=== PATIENT | male | born 1950 | race Caucasian/White ===

== ENCOUNTER 2018-03-23 12:20 | Inpatient (IN) ==
[2018-03-23] MEDS ORDERED: SODIUM CHLORIDE 0.9% 1,000 ML IV PRN (13:13)
[2018-03-23] MEDS ORDERED: DEXTROSE 50% 25 GM/50 ML VIAL IV PRN (13:14)
[2018-03-23] MEDS ORDERED: GLUCAGON 1 MG VIAL IM PRN (13:14)
[2018-03-23 14:57] LABS: % Iron Saturation 38.3 % (18-50); Ferritin 482.1 ng/ml (26-388)
[2018-03-23 15:18] LABS: Folate 4.7 NG/ML (5.4-24.0)
[2018-03-23 15:42] LABS: Hepatitis A Ab IgM Quant 0.17 Index; Hepatitis A Ab IgM Result Negative (Negative); Hepatitis B Core IgM Quant 0.18 Index; Hepatitis B Core IgM Result Negative (Negative); Hepatitis B Surface Ag Quant < 0.10 Index; Hepatitis B Surface Ag Result Negative (Negative); Hepatitis C Virus Ab Quant 0.17 Index; Hepatitis C Virus Ab Result Negative (Negative)
[2018-03-24] MEDS ORDERED: ceFAZolin 1,000 MG in SYRINGE 1 EACH IV ONE (06:00)
[2018-03-24 07:22] LABS: Total Protein (Chem) 6.4 G/DL (6.4-8.3)
[2018-03-24 07:27] LABS: Basophils # 0.1 10*3/uL (0.0-0.2); Basophils % 0.7 % (0.0-0.8); Eosinophils # 0.2 10*3/uL (0.0-0.87); Eosinophils % 3.1 % (0.00-10.9); Hematocrit 19.8 VOL% (42.0-52.0); Hemoglobin 6.6 GM/DL (14.0-18.0); Immature Granulocytes % 0.9 %; Immature Granulocytes Absolute 0.07 #; Lymphocytes # 0.9 10*3/uL (1.4-4.0); Lymphocytes % 11.4 % (21.2-54.2); Mean Corpuscular HGB Conc 33.3 GM/DL (32-36); Mean Corpuscular Hemoglobin 30 PG (27-34); Mean Corpuscular Volume 89.6 FL (87-102); Mean Platelet Volume 11.2 FL (9.6-12.0); Monocytes # 0.6 10*3/uL (0.11-0.8); Monocytes % 7.6 % (1.7-12.7); Neutrophils # 5.7 10*3/uL (1.4-7.4); Neutrophils % 76.3 % (38.7-73.9); Platelet Count 201 T/CUMM (130-400); Red Blood Count 2.21 MC/CUMM (3.8-5.5); Red Cell Distribution Width 18.5 % (9.3-17.3); White Blood Count 7.5 T/CUMM (4-12)
[2018-03-24] MEDS ORDERED: GLUCAGON 1 MG VIAL IM PRN (07:54)
[2018-03-24] MEDS ORDERED: DEXTROSE 50% 25 GM/50 ML VIAL IV PRN ×2 (07:54→14:35)
[2018-03-24] MEDS ORDERED: EPOETIN ALFA 2,000 UNIT/1 ML VIAL IV PRN (07:54)
[2018-03-24 07:58] LABS: Osmolality,Calculated 323.8 MOS/KG (273-304); Potassium 4.5 MMOL/L (3.5-5.1)
[2018-03-24 08:00] LABS: Calcium 5.5 MG/DL (8.5-10.1)
[2018-03-24] MEDS ORDERED: BUPIVACAINE 0.25% 50 ML VIAL ONE (09:06)
[2018-03-24] MEDS ORDERED: LIDOCAINE 1%/EPI INJ 20 ML VIAL ONE (09:06)
[2018-03-24] MEDS ORDERED: HEPARIN 5,000 UNIT/1 ML VIAL ONE (09:06)
[2018-03-24] MEDS ORDERED: DEXTROSE 50% 25 GM/50 ML VIAL IV ONE (09:18)
[2018-03-24 10:02] LABS: Albumin (SPE) 3.7 G/DL (3.2-5.3); Albumin (SPE) Rel % 58.2 %; Alpha 1 (SPE) 0.2 G/DL (0.1-0.4); Alpha 1 (SPE) Rel % 3.6 %; Alpha 2 (SPE) 0.8 G/DL (0.4-1.0); Alpha 2 (SPE) Rel % 12.1 %; Beta (SPE) 0.7 G/DL (0.5-1.1)
[2018-03-24 10:03] LABS: Gamma (SPE) Rel % 16.1 %
[2018-03-24] MEDS ORDERED: MIDAZOLAM 2 MG/2 ML VIAL ONE (10:59)
[2018-03-24] MEDS ORDERED: PROPOFOL 200 MG/20 ML VIAL IV ONE (10:59)
[2018-03-24] MEDS ORDERED: SODIUM CHLORIDE 0.9% 100 ML IV ONE (11:00)
[2018-03-24] MEDS ORDERED: fentaNYL 100 MCG/2 ML VIAL ONE (11:00)
[2018-03-24] MEDS ORDERED: INSULIN REGULAR 100 UNIT/ML SUBCUT SCH (11:30)
[2018-03-24] MEDS: INSULIN REGULAR 100 UNIT/ML SUBCUT SCH (16:56)
[2018-03-25] MEDS: INSULIN REGULAR 100 UNIT/ML SUBCUT SCH ×2 (07:52→16:40)
[2018-03-25 09:22] LABS: Hematocrit 20.6 VOL% (42.0-52.0); Hemoglobin 6.9 GM/DL (14.0-18.0)
[2018-03-25 14:00] LABS: Glomerular Basement Membrane A < 0.2 U; Myeloperoxidase Antibody < 0.2 U
[2018-03-25] MEDS ORDERED: ATORVASTATIN 40 MG TABLET PO SCH (21:00)
[2018-03-25] MEDS ORDERED: ZALEPLON 5 MG CAPSULE PO PRN (21:00)
[2018-03-25] MEDS ORDERED: AMITRIPTYLINE 10 MG TABLET PO SCH (21:00)
[2018-03-26 06:25] LABS: Hematocrit 20.8 VOL% (42.0-52.0); Hemoglobin 7.1 GM/DL (14.0-18.0)
[2018-03-26] MEDS ORDERED: SODIUM CHLORIDE 0.9% 1,000 ML IV PRN (07:31)
[2018-03-26] MEDS: INSULIN REGULAR 100 UNIT/ML SUBCUT SCH (08:31)
[2018-03-26 12:20] LABS: Albumin (UPER) 757.5 MG/DL; Albumin (UPER) Rel% 70.4 %; Alpha 1 (UPER) 53.8 MG/DL; Alpha 2 (UPER) 75.3 MG/DL; Beta (UPER) 80.7 MG/DL; Beta (UPER) Rel % 7.5 %; Gamma (UPER) 108.7 MG/DL; Gamma (UPER) Rel % 10.1 %
[2018-03-26 16:37] LABS: Hematocrit 29.7 VOL% (42.0-52.0)
[2018-03-26 16:38] LABS: Hemoglobin 10.1 GM/DL (14.0-18.0)
[2018-03-26 16:48] VITALS: BP 125/63
== END 2018-03-26 17:30 | disposition home or self-care (01) | DRG 673 ==
LOC: N.5EOUT 12:20 → N.5E 12:20 → EDSTATUS 03-24 14:28
PROVIDERS: ADMIT Internal Medicine Nephrology; ATTEND Internal Medicine Nephrology

== ENCOUNTER 2019-01-25 22:07 | Inpatient (IN) ==
[2019-01-25 23:18] LABS: Basophils # 0.1 10*3/uL (0.0-0.2); Basophils % 0.9 % (0.0-0.8); Eosinophils # 0.3 10*3/uL (0.0-0.87); Eosinophils % 4.3 % (0.00-10.9); Hemoglobin 9.2 GM/DL (14.0-18.0); Immature Granulocytes % 0.9 %; Immature Granulocytes Absolute 0.06 #; Lymphocytes # 2.1 10*3/uL (1.4-4.0); Lymphocytes % 31.5 % (21.2-54.2); Mean Corpuscular HGB Conc 31.7 GM/DL (32-36); Mean Corpuscular Hemoglobin 32 PG (27-34); Mean Platelet Volume 11.3 FL (9.6-12.0); Monocytes # 0.6 10*3/uL (0.11-0.8); Monocytes % 8.7 % (1.7-12.7); Neutrophils # 3.5 10*3/uL (1.4-7.4); Neutrophils % 53.7 % (38.7-73.9); Platelet Count 248 T/CUMM (130-400); Red Blood Count 2.87 MC/CUMM (3.8-5.5); Red Cell Distribution Width 16.4 % (9.3-17.3); White Blood Count 6.5 T/CUMM (4-12)
[2019-01-25 23:23] LABS: Partial Thromboplastin Time 27.1 SECS (0-40)
[2019-01-25 23:31] LABS: Albumin 3.8 G/DL (3.4-5.0); Bilirubin,Total 0.4 MG/DL (0.2-1.0); Osmolality,Calculated 287.5 MOS/KG (273-304); Potassium 3.9 MMOL/L (3.5-5.1); Total Protein 7.6 G/DL (6.4-8.3)
[2019-01-26] MEDS ORDERED: ONDANSETRON 4 MG/2 ML VIAL IV PRN (03:03)
[2019-01-26] MEDS ORDERED: LEVOFLOXACIN INJ 500 MG in PREMIX 1 EACH IV ONE (03:30)
[2019-01-26] MEDS: PIPERACILLIN/TAZOBACTAM 2,250 MG in SODIUM CHLORIDE 0.9% 100 ML IV SCH ×3 (05:44→21:29)
[2019-01-26] MEDS ORDERED: GLUCAGON 1 MG VIAL IM PRN (05:55)
[2019-01-26] MEDS ORDERED: DEXTROSE 50% 25 GM/50 ML SYRINGE IV PRN (05:55)
[2019-01-26 07:23] LABS: Basophils # 0.1 10*3/uL (0.0-0.2); Basophils % 0.7 % (0.0-0.8); Eosinophils # 0.2 10*3/uL (0.0-0.87); Eosinophils % 2.6 % (0.00-10.9); Hematocrit 26.2 VOL% (42.0-52.0); Hemoglobin 8.3 GM/DL (14.0-18.0); Immature Granulocytes % 0.4 %; Immature Granulocytes Absolute 0.04 #; Lymphocytes # 1.5 10*3/uL (1.4-4.0); Mean Corpuscular HGB Conc 31.7 GM/DL (32-36); Mean Corpuscular Hemoglobin 32 PG (27-34); Mean Corpuscular Volume 101.6 FL (87-102); Mean Platelet Volume 10.9 FL (9.6-12.0); Monocytes # 0.6 10*3/uL (0.11-0.8); Monocytes % 6.9 % (1.7-12.7); Neutrophils # 6.7 10*3/uL (1.4-7.4); Neutrophils % 73.4 % (38.7-73.9); Platelet Count 226 T/CUMM (130-400); Red Blood Count 2.58 MC/CUMM (3.8-5.5); Red Cell Distribution Width 16.4 % (9.3-17.3); White Blood Count 9.1 T/CUMM (4-12)
[2019-01-26 07:49] LABS: Calcium 8.7 MG/DL (8.5-10.1); Osmolality,Calculated 291.4 MOS/KG (273-304); Potassium 4.3 MMOL/L (3.5-5.1)
[2019-01-26] MEDS: ALBUTEROL/IPRATROPIUM 3 ML NEB RESP TX SCH ×3 (07:51→20:07)
[2019-01-26] MEDS: INSULIN REGULAR 100 UNIT/ML SUBCUT SCH ×4 (08:31→21:29)
[2019-01-26] MEDS ORDERED: MEPERIDINE 50 MG/1 ML VIAL IM ONE (09:15)
[2019-01-26] MEDS ORDERED: LIDOCAINE 2% 20 ML VIAL RESP TX ONE (09:15)
[2019-01-26] MEDS ORDERED: LIDOCAINE 2% VISCOUS 100 ML BOTTLE SWISH/SPIT ONE (09:15)
[2019-01-26] MEDS ORDERED: diphenhydrAMINE 50 MG/1 ML VIAL IM ONE (09:15)
[2019-01-26] MEDS ORDERED: LIDOCAINE 1% 20 ML VIAL MISC INJ ONE (09:15)
[2019-01-26] MEDS ORDERED: BENZONATATE 100 MG CAPSULE PO ONE (09:17)
[2019-01-26 10:19] LABS: PT Patient Result 11.3 SECS; Partial Thromboplastin Time 27.5 SECS (0-40)
[2019-01-26] MEDS ORDERED: EPINEPHrine 1 MG/ML VIAL ET ONE (10:34)
[2019-01-26] MEDS ORDERED: EPINEPHrine 1 MG/ML VIAL ONE (10:46)
[2019-01-26] MEDS ORDERED: NIFEdipine 10 MG CAPSULE PO PRN (11:03)
[2019-01-26] MEDS ORDERED: RACEPINEPHRINE 0.5 ML NEB RESP TX PRN ×2 (11:22→11:30)
[2019-01-26] MEDS: amLODIPine 5 MG TABLET PO SCH (12:45)
[2019-01-26] MEDS: RACEPINEPHRINE 0.5 ML NEB RESP TX SCH ×2 (12:45→20:08)
[2019-01-26] MEDS: hydrALAZINE 25 MG TABLET PO SCH ×2 (14:55→21:29)
[2019-01-26] MEDS ORDERED: SODIUM CHLORIDE 0.65% NASAL SPRAY 45 ML BOTTLE BOTH NARES PRN (16:28)
[2019-01-26] MEDS: AMITRIPTYLINE 10 MG TABLET PO SCH (21:29)
[2019-01-27] MEDS: ALBUTEROL/IPRATROPIUM 3 ML NEB RESP TX SCH ×2 (01:02→07:50)
[2019-01-27 04:35] LABS: Basophils % 0.4 % (0.0-0.8); Eosinophils % 0.2 % (0.00-10.9); Hematocrit 25.8 VOL% (42.0-52.0); Hemoglobin 8.1 GM/DL (14.0-18.0); Immature Granulocytes % 0.5 %; Immature Granulocytes Absolute 0.05 #; Lymphocytes % 10.2 % (21.2-54.2); Mean Corpuscular HGB Conc 31.4 GM/DL (32-36); Mean Corpuscular Hemoglobin 32 PG (27-34); Mean Corpuscular Volume 101.2 FL (87-102); Mean Platelet Volume 11.7 FL (9.6-12.0); Monocytes # 0.6 10*3/uL (0.11-0.8); Monocytes % 5.7 % (1.7-12.7); Neutrophils # 8.4 10*3/uL (1.4-7.4); Platelet Count 231 T/CUMM (130-400); Red Blood Count 2.55 MC/CUMM (3.8-5.5); Red Cell Distribution Width 16.3 % (9.3-17.3); White Blood Count 10.1 T/CUMM (4-12)
[2019-01-27 04:54] LABS: Calcium 8.6 MG/DL (8.5-10.1); Osmolality,Calculated 283.7 MOS/KG (273-304); Potassium 3.8 MMOL/L (3.5-5.1)
[2019-01-27] MEDS: PIPERACILLIN/TAZOBACTAM 2,250 MG in SODIUM CHLORIDE 0.9% 100 ML IV SCH ×3 (05:30→21:24)
[2019-01-27] MEDS: RACEPINEPHRINE 0.5 ML NEB RESP TX SCH ×3 (07:50→19:59)
[2019-01-27] MEDS: INSULIN REGULAR 100 UNIT/ML SUBCUT SCH ×4 (07:55→21:23)
[2019-01-27] MEDS: amLODIPine 5 MG TABLET PO SCH (08:31)
[2019-01-27] MEDS: hydrALAZINE 25 MG TABLET PO SCH ×3 (08:31→21:23)
[2019-01-27] MEDS: TAMSULOSIN 0.4 MG CAPSULE PO SCH (09:58)
[2019-01-27] MEDS: ALBUTEROL 1.25 MG/3 ML NEB RESP TX SCH ×2 (13:35→19:59)
[2019-01-27] MEDS: AMITRIPTYLINE 10 MG TABLET PO SCH (21:23)
[2019-01-27] MEDS: DOCUSATE/SENNA 50-8.6 MG TABLET PO SCH (21:23)
[2019-01-27] MEDS: PRAMIPEXOLE 0.25 MG TABLET PO SCH (21:23)
[2019-01-28] MEDS: ALBUTEROL 1.25 MG/3 ML NEB RESP TX SCH ×4 (00:33→20:22)
[2019-01-28] MEDS: LEVOFLOXACIN INJ 250 MG in PREMIX 1 EACH IV SCH (03:57)
[2019-01-28 04:06] LABS: Basophils # 0.1 10*3/uL (0.0-0.2); Basophils % 0.6 % (0.0-0.8); Eosinophils # 0.2 10*3/uL (0.0-0.87); Eosinophils % 2.1 % (0.00-10.9); Hemoglobin 8.2 GM/DL (14.0-18.0); Immature Granulocytes % 0.7 %; Immature Granulocytes Absolute 0.06 #; Lymphocytes # 1.7 10*3/uL (1.4-4.0); Lymphocytes % 19.7 % (21.2-54.2); Mean Corpuscular HGB Conc 31.5 GM/DL (32-36); Mean Corpuscular Hemoglobin 32 PG (27-34); Mean Corpuscular Volume 101.6 FL (87-102); Mean Platelet Volume 11.7 FL (9.6-12.0); Monocytes # 0.8 10*3/uL (0.11-0.8); Monocytes % 8.6 % (1.7-12.7); Neutrophils % 68.3 % (38.7-73.9); Platelet Count 220 T/CUMM (130-400); Red Blood Count 2.56 MC/CUMM (3.8-5.5); Red Cell Distribution Width 16.1 % (9.3-17.3); White Blood Count 8.7 T/CUMM (4-12)
[2019-01-28 04:30] LABS: Osmolality,Calculated 288.7 MOS/KG (273-304)
[2019-01-28] MEDS: PIPERACILLIN/TAZOBACTAM 2,250 MG in SODIUM CHLORIDE 0.9% 100 ML IV SCH ×3 (04:37→21:39)
[2019-01-28] MEDS: RACEPINEPHRINE 0.5 ML NEB RESP TX SCH ×3 (07:13→20:22)
[2019-01-28] MEDS: amLODIPine 10 MG TABLET PO SCH (08:10)
[2019-01-28] MEDS: hydrALAZINE 25 MG TABLET PO SCH ×3 (08:11→20:02)
[2019-01-28] MEDS: TAMSULOSIN 0.4 MG CAPSULE PO SCH (08:11)
[2019-01-28] MEDS: DOCUSATE/SENNA 50-8.6 MG TABLET PO SCH ×2 (08:12→20:02)
[2019-01-28] MEDS: INSULIN REGULAR 100 UNIT/ML SUBCUT SCH ×4 (08:36→20:02)
[2019-01-28] MEDS: AMITRIPTYLINE 10 MG TABLET PO SCH (20:02)
[2019-01-28] MEDS: PRAMIPEXOLE 0.25 MG TABLET PO SCH (20:02)
[2019-01-29] MEDS: ALBUTEROL 1.25 MG/3 ML NEB RESP TX SCH ×4 (01:22→19:56)
[2019-01-29] MEDS: PIPERACILLIN/TAZOBACTAM 2,250 MG in SODIUM CHLORIDE 0.9% 100 ML IV SCH ×2 (05:40→13:17)
[2019-01-29 06:33] LABS: Basophils # 0.1 10*3/uL (0.0-0.2); Basophils % 0.7 % (0.0-0.8); Eosinophils # 0.2 10*3/uL (0.0-0.87); Eosinophils % 2.5 % (0.00-10.9); Hematocrit 26.1 VOL% (42.0-52.0); Hemoglobin 8.3 GM/DL (14.0-18.0); Immature Granulocytes % 0.4 %; Immature Granulocytes Absolute 0.03 #; Lymphocytes # 1.3 10*3/uL (1.4-4.0); Lymphocytes % 17.4 % (21.2-54.2); Mean Corpuscular HGB Conc 31.8 GM/DL (32-36); Mean Corpuscular Hemoglobin 32 PG (27-34); Mean Corpuscular Volume 100.8 FL (87-102); Mean Platelet Volume 11.5 FL (9.6-12.0); Monocytes # 0.6 10*3/uL (0.11-0.8); Monocytes % 8.9 % (1.7-12.7); Neutrophils # 5.1 10*3/uL (1.4-7.4); Neutrophils % 70.1 % (38.7-73.9); Platelet Count 225 T/CUMM (130-400); Red Blood Count 2.59 MC/CUMM (3.8-5.5); Red Cell Distribution Width 16.2 % (9.3-17.3); White Blood Count 7.2 T/CUMM (4-12)
[2019-01-29 06:38] LABS: PT Patient Result 10.6 SECS; Partial Thromboplastin Time 28.9 SECS (0-40)
[2019-01-29] MEDS: RACEPINEPHRINE 0.5 ML NEB RESP TX SCH (07:53)
[2019-01-29] MEDS ORDERED: MEPERIDINE 50 MG/1 ML VIAL IM ONE (08:30)
[2019-01-29] MEDS ORDERED: BENZONATATE 100 MG CAPSULE PO ONE (08:30)
[2019-01-29] MEDS ORDERED: diphenhydrAMINE 50 MG/1 ML VIAL IM ONE (08:30)
[2019-01-29] MEDS ORDERED: LIDOCAINE 2% VISCOUS 100 ML BOTTLE SWISH/SPIT ONE (09:00)
[2019-01-29] MEDS ORDERED: LIDOCAINE 2% 20 ML VIAL RESP TX ONE (09:00)
[2019-01-29] MEDS ORDERED: LIDOCAINE 1% 20 ML VIAL MISC INJ ONE (09:00)
[2019-01-29] MEDS: INSULIN REGULAR 100 UNIT/ML SUBCUT SCH ×4 (09:12→22:24)
[2019-01-29] MEDS ORDERED: EPINEPHrine 1 MG/ML VIAL ET ONE (10:40)
[2019-01-29] MEDS ORDERED: MIDAZOLAM 2 MG/2 ML VIAL ONE (11:50)
[2019-01-29] MEDS ORDERED: EPINEPHrine 1 MG/ML VIAL ONE (11:50)
[2019-01-29] MEDS: amLODIPine 10 MG TABLET PO SCH (13:18)
[2019-01-29] MEDS: DOCUSATE/SENNA 50-8.6 MG TABLET PO SCH ×2 (13:18→22:23)
[2019-01-29] MEDS: hydrALAZINE 25 MG TABLET PO SCH ×3 (13:18→22:23)
[2019-01-29] MEDS: TAMSULOSIN 0.4 MG CAPSULE PO SCH (13:18)
[2019-01-29 13:53] LABS: Procalcitonin, S 0.55 ng/mL (<=0.15)
[2019-01-29] MEDS: DORNASE ALFA 2.5 MG/2.5 ML VIAL RESP TX SCH (19:56)
[2019-01-29] MEDS: AMITRIPTYLINE 10 MG TABLET PO SCH (22:23)
[2019-01-29] MEDS: PRAMIPEXOLE 0.25 MG TABLET PO SCH (22:23)
[2019-01-29] MEDS: PIPERACILLIN/TAZOBACTAM 3,375 MG in SODIUM CHLORIDE 0.9% 100 ML IV SCH (22:24)
[2019-01-30] MEDS: ALBUTEROL 1.25 MG/3 ML NEB RESP TX SCH ×4 (01:16→19:54)
[2019-01-30] MEDS: LEVOFLOXACIN INJ 250 MG in PREMIX 1 EACH IV SCH (04:05)
[2019-01-30 04:47] LABS: Basophils # 0.1 10*3/uL (0.0-0.2); Basophils % 0.9 % (0.0-0.8); Eosinophils # 0.1 10*3/uL (0.0-0.87); Eosinophils % 2.1 % (0.00-10.9); Hematocrit 25.9 VOL% (42.0-52.0); Hemoglobin 8.3 GM/DL (14.0-18.0); Immature Granulocytes % 0.5 %; Immature Granulocytes Absolute 0.03 #; Lymphocytes # 1.2 10*3/uL (1.4-4.0); Lymphocytes % 17.6 % (21.2-54.2); Mean Corpuscular Hemoglobin 32 PG (27-34); Mean Platelet Volume 11.3 FL (9.6-12.0); Monocytes # 0.6 10*3/uL (0.11-0.8); Neutrophils # 4.6 10*3/uL (1.4-7.4); Neutrophils % 69.9 % (38.7-73.9); Platelet Count 235 T/CUMM (130-400); Red Blood Count 2.59 MC/CUMM (3.8-5.5); Red Cell Distribution Width 15.9 % (9.3-17.3); White Blood Count 6.6 T/CUMM (4-12)
[2019-01-30 05:03] LABS: Calcium 8.1 MG/DL (8.5-10.1); Osmolality,Calculated 279.1 MOS/KG (273-304); Potassium 4.2 MMOL/L (3.5-5.1)
[2019-01-30] MEDS: DORNASE ALFA 2.5 MG/2.5 ML VIAL RESP TX SCH ×2 (08:29→19:54)
[2019-01-30] MEDS: INSULIN REGULAR 100 UNIT/ML SUBCUT SCH ×4 (11:28→21:52)
[2019-01-30] MEDS: hydrALAZINE 25 MG TABLET PO SCH ×3 (14:58→21:51)
[2019-01-30] MEDS: PIPERACILLIN/TAZOBACTAM 3,375 MG in SODIUM CHLORIDE 0.9% 100 ML IV SCH (14:58)
[2019-01-30] MEDS: DOCUSATE/SENNA 50-8.6 MG TABLET PO SCH ×2 (14:58→21:52)
[2019-01-30] MEDS: TAMSULOSIN 0.4 MG CAPSULE PO SCH (14:58)
[2019-01-30] MEDS: amLODIPine 10 MG TABLET PO SCH (14:58)
[2019-01-30] MEDS: PRAMIPEXOLE 0.25 MG TABLET PO SCH (21:51)
[2019-01-30] MEDS: AMITRIPTYLINE 10 MG TABLET PO SCH (21:51)
[2019-01-31] MEDS: ALBUTEROL 1.25 MG/3 ML NEB RESP TX SCH ×4 (00:41→19:36)
[2019-01-31] MEDS: PIPERACILLIN/TAZOBACTAM 3,375 MG in SODIUM CHLORIDE 0.9% 100 ML IV SCH ×2 (02:04→17:28)
[2019-01-31 06:00] LABS: Basophils # 0.1 10*3/uL (0.0-0.2); Eosinophils # 0.1 10*3/uL (0.0-0.87); Eosinophils % 2.1 % (0.00-10.9); Hematocrit 27.4 VOL% (42.0-52.0); Hemoglobin 8.5 GM/DL (14.0-18.0); Immature Granulocytes % 0.2 %; Immature Granulocytes Absolute 0.01 #; Lymphocytes # 0.9 10*3/uL (1.4-4.0); Lymphocytes % 17.8 % (21.2-54.2); Mean Corpuscular Hemoglobin 32 PG (27-34); Mean Corpuscular Volume 101.5 FL (87-102); Monocytes # 0.6 10*3/uL (0.11-0.8); Monocytes % 12.1 % (1.7-12.7); Neutrophils # 3.5 10*3/uL (1.4-7.4); Neutrophils % 66.8 % (38.7-73.9); Platelet Count 253 T/CUMM (130-400); Red Cell Distribution Width 15.9 % (9.3-17.3); White Blood Count 5.2 T/CUMM (4-12)
[2019-01-31 06:12] LABS: Calcium 8.4 MG/DL (8.5-10.1); Osmolality,Calculated 276.8 MOS/KG (273-304); Potassium 3.9 MMOL/L (3.5-5.1)
[2019-01-31] MEDS: DORNASE ALFA 2.5 MG/2.5 ML VIAL RESP TX SCH ×2 (07:53→19:36)
[2019-01-31] MEDS: INSULIN REGULAR 100 UNIT/ML SUBCUT SCH ×4 (08:20→21:35)
[2019-01-31] MEDS: DOCUSATE/SENNA 50-8.6 MG TABLET PO SCH ×2 (09:15→21:34)
[2019-01-31] MEDS: hydrALAZINE 25 MG TABLET PO SCH ×3 (09:15→21:34)
[2019-01-31] MEDS: TAMSULOSIN 0.4 MG CAPSULE PO SCH (09:15)
[2019-01-31] MEDS: amLODIPine 10 MG TABLET PO SCH (09:15)
[2019-01-31] MEDS: PRAMIPEXOLE 0.25 MG TABLET PO SCH (21:34)
[2019-01-31] MEDS: AMITRIPTYLINE 10 MG TABLET PO SCH (21:34)
[2019-02-01] MEDS: ALBUTEROL 1.25 MG/3 ML NEB RESP TX SCH ×4 (02:06→19:16)
[2019-02-01] MEDS: PIPERACILLIN/TAZOBACTAM 3,375 MG in SODIUM CHLORIDE 0.9% 100 ML IV SCH ×2 (03:55→14:51)
[2019-02-01] MEDS: DORNASE ALFA 2.5 MG/2.5 ML VIAL RESP TX SCH ×2 (07:18→19:16)
[2019-02-01] MEDS: INSULIN REGULAR 100 UNIT/ML SUBCUT SCH ×4 (07:57→21:18)
[2019-02-01] MEDS: amLODIPine 10 MG TABLET PO SCH (08:53)
[2019-02-01] MEDS: TAMSULOSIN 0.4 MG CAPSULE PO SCH (08:53)
[2019-02-01] MEDS: DOCUSATE/SENNA 50-8.6 MG TABLET PO SCH ×2 (08:54→21:39)
[2019-02-01] MEDS: hydrALAZINE 25 MG TABLET PO SCH ×3 (08:54→21:39)
[2019-02-01] MEDS: LEVOFLOXACIN INJ 250 MG in PREMIX 1 EACH IV SCH (08:56)
[2019-02-01] MEDS: PRAMIPEXOLE 0.25 MG TABLET PO SCH (21:38)
[2019-02-01] MEDS: AMITRIPTYLINE 10 MG TABLET PO SCH (21:39)
[2019-02-02] MEDS: ALBUTEROL 1.25 MG/3 ML NEB RESP TX SCH ×4 (00:48→19:46)
[2019-02-02] MEDS: PIPERACILLIN/TAZOBACTAM 3,375 MG in SODIUM CHLORIDE 0.9% 100 ML IV SCH (02:36)
[2019-02-02] MEDS: DORNASE ALFA 2.5 MG/2.5 ML VIAL RESP TX SCH ×2 (07:27→19:46)
[2019-02-02] MEDS: INSULIN REGULAR 100 UNIT/ML SUBCUT SCH ×4 (07:55→20:11)
[2019-02-02] MEDS ORDERED: MIDAZOLAM 2 MG/2 ML VIAL ONE (08:25)
[2019-02-02] MEDS: hydrALAZINE 25 MG TABLET PO SCH ×3 (09:24→21:19)
[2019-02-02] MEDS: TAMSULOSIN 0.4 MG CAPSULE PO SCH (09:24)
[2019-02-02] MEDS: amLODIPine 10 MG TABLET PO SCH (09:24)
[2019-02-02] MEDS: DOCUSATE/SENNA 50-8.6 MG TABLET PO SCH ×2 (09:24→21:19)
[2019-02-02] MEDS: AMITRIPTYLINE 10 MG TABLET PO SCH (21:19)
[2019-02-02] MEDS: PRAMIPEXOLE 0.25 MG TABLET PO SCH (21:19)
[2019-02-03] MEDS: ALBUTEROL 1.25 MG/3 ML NEB RESP TX SCH ×4 (00:37→20:36)
[2019-02-03 04:48] LABS: Basophils # 0.1 10*3/uL (0.0-0.2); Basophils % 1.2 % (0.0-0.8); Eosinophils # 0.3 10*3/uL (0.0-0.87); Eosinophils % 5.9 % (0.00-10.9); Hemoglobin 8.4 GM/DL (14.0-18.0); Immature Granulocytes % 0.4 %; Immature Granulocytes Absolute 0.02 #; Lymphocytes # 1.3 10*3/uL (1.4-4.0); Lymphocytes % 25.7 % (21.2-54.2); Mean Corpuscular HGB Conc 31.1 GM/DL (32-36); Mean Corpuscular Hemoglobin 31 PG (27-34); Mean Corpuscular Volume 98.9 FL (87-102); Mean Platelet Volume 10.5 FL (9.6-12.0); Monocytes # 0.7 10*3/uL (0.11-0.8); Monocytes % 13.4 % (1.7-12.7); Neutrophils # 2.6 10*3/uL (1.4-7.4); Neutrophils % 53.4 % (38.7-73.9); Platelet Count 317 T/CUMM (130-400); Red Blood Count 2.73 MC/CUMM (3.8-5.5); Red Cell Distribution Width 15.6 % (9.3-17.3); White Blood Count 4.9 T/CUMM (4-12)
[2019-02-03 05:03] LABS: PT Patient Result 10.6 SECS
[2019-02-03] MEDS: DORNASE ALFA 2.5 MG/2.5 ML VIAL RESP TX SCH ×2 (07:15→22:00)
[2019-02-03] MEDS: INSULIN REGULAR 100 UNIT/ML SUBCUT SCH ×4 (07:30→20:56)
[2019-02-03] MEDS ORDERED: MEPERIDINE 50 MG/1 ML VIAL IM ONE (08:00)
[2019-02-03] MEDS ORDERED: diphenhydrAMINE 50 MG/1 ML VIAL IM ONE (08:00)
[2019-02-03] MEDS ORDERED: BENZONATATE 100 MG CAPSULE PO ONE (08:00)
[2019-02-03] MEDS ORDERED: MIDAZOLAM 2 MG/2 ML VIAL ONE (08:18)
[2019-02-03] MEDS ORDERED: LIDOCAINE 1% 20 ML VIAL MISC INJ ONE (08:30)
[2019-02-03] MEDS ORDERED: LIDOCAINE 2% VISCOUS 100 ML BOTTLE SWISH/SPIT ONE (08:30)
[2019-02-03] MEDS ORDERED: LIDOCAINE 2% 20 ML VIAL RESP TX ONE (08:30)
[2019-02-03] MEDS ORDERED: DEXTROSE 50% 25 GM/50 ML VIAL IV PRN (11:14)
[2019-02-03] MEDS: DOCUSATE/SENNA 50-8.6 MG TABLET PO SCH ×2 (12:03→20:56)
[2019-02-03] MEDS: TAMSULOSIN 0.4 MG CAPSULE PO SCH (12:03)
[2019-02-03] MEDS: hydrALAZINE 25 MG TABLET PO SCH ×3 (12:03→20:56)
[2019-02-03] MEDS: amLODIPine 10 MG TABLET PO SCH (12:04)
[2019-02-03] MEDS: AMITRIPTYLINE 10 MG TABLET PO SCH (20:56)
[2019-02-03] MEDS: PRAMIPEXOLE 0.25 MG TABLET PO SCH (20:56)
[2019-02-04] MEDS: ALBUTEROL 1.25 MG/3 ML NEB RESP TX SCH ×2 (01:33→07:52)
[2019-02-04] MEDS: DORNASE ALFA 2.5 MG/2.5 ML VIAL RESP TX SCH (07:52)
[2019-02-04] MEDS: INSULIN REGULAR 100 UNIT/ML SUBCUT SCH (08:17)
[2019-02-04 08:34] VITALS: BP 119/71
[2019-02-04] MEDS: amLODIPine 10 MG TABLET PO SCH (10:17)
[2019-02-04] MEDS: TAMSULOSIN 0.4 MG CAPSULE PO SCH (10:17)
[2019-02-04] MEDS: DOCUSATE/SENNA 50-8.6 MG TABLET PO SCH (10:17)
[2019-02-04] MEDS: hydrALAZINE 25 MG TABLET PO SCH (10:17)
== END 2019-02-04 11:22 | disposition home or self-care (01) | DRG 204 ==
LOC: N.ED 22:07 → N.EDINP 01-26 03:03 → SUATTDRO 01-26 03:03 → N.CC 01-26 05:37 → N.5E 01-28 20:01
PROVIDERS: ADMIT Internal Medicine; ATTEND Internal Medicine

== ENCOUNTER 2020-02-02 22:42 | Inpatient (IN) ==
[2020-02-02] MEDS ORDERED: ONDANSETRON 4 MG/2 ML VIAL IV STA (23:01)
[2020-02-02] MEDS ORDERED: methylPREDNISolone SOD SUC 125 MG/2 ML VIAL IV STA (23:01)
[2020-02-02] MEDS ORDERED: LEVOFLOXACIN INJ 750 MG in PREMIX 1 EACH IV STA (23:03)
[2020-02-02] MEDS ORDERED: ALBUTEROL NEB SOLN 5 MG/ML 20 ML/BOTTLE CONT NEB SCH (23:30)
[2020-02-02 23:44] LABS: Basophils # 0.1 10*3/uL (0.0-0.2); Basophils % 0.6 % (0.0-0.8); Eosinophils # 0.1 10*3/uL (0.0-0.87); Eosinophils % 1.5 % (0.00-10.9); Hematocrit 32.2 VOL% (42.0-52.0); Hemoglobin 9.9 GM/DL (14.0-18.0); Immature Granulocytes % 0.7 %; Immature Granulocytes Absolute 0.06 #; Lymphocytes # 0.7 10*3/uL (1.4-4.0); Lymphocytes % 7.4 % (21.2-54.2); Mean Corpuscular HGB Conc 30.7 GM/DL (32-36); Mean Corpuscular Volume 97.9 FL (87-102); Mean Platelet Volume 10.6 FL (9.6-12.0); Monocytes % 6.1 % (1.7-12.7); Neutrophils % 83.7 % (38.7-73.9); Platelet Count 251 T/CUMM (130-400); Red Blood Count 3.29 MC/CUMM (3.8-5.5); Red Cell Distribution Width 18.5 % (9.3-17.3)
[2020-02-02 23:55] LABS: INR 1.1; PT Patient Result 11.8 SECS (9.6-12.2); Partial Thromboplastin Time 31.5 SECS (20.8-36.0)
[2020-02-03 00:03] LABS: Albumin 3.6 G/DL (3.4-5.0); Bilirubin,Total 0.5 MG/DL (0.2-1.0); CKMB % 1.8 %; Osmolality,Calculated 288.7 MOS/KG (273-304); Total Protein 7.8 G/DL (6.4-8.3); Troponin I 0.037 NG/ML (0.00-0.045)
[2020-02-03] MEDS ORDERED: ZALEPLON 5 MG CAPSULE PO PRN (00:24)
[2020-02-03] MEDS ORDERED: MORPHINE 4 MG/1 ML VIAL IV PRN (00:24)
[2020-02-03] MEDS ORDERED: NICOTINE 21 MG/24 HR PATCH TRANSDERM PRN (00:24)
[2020-02-03] MEDS ORDERED: ONDANSETRON 4 MG/2 ML VIAL IV PRN (00:24)
[2020-02-03] MEDS ORDERED: hydrALAZINE 20 MG/1 ML VIAL IV PRN (00:24)
[2020-02-03] MEDS ORDERED: diphenhydrAMINE CAP 25 MG CAPSULE PO PRN (00:24)
[2020-02-03] MEDS ORDERED: DOCUSATE SODIUM 100 MG CAPSULE PO PRN (00:24)
[2020-02-03] MEDS ORDERED: ACETAMINOPHEN 325 MG TABLET PO PRN (00:24)
[2020-02-03] MEDS ORDERED: guaiFENesin/DM ER 600-30 MG TABLET PO PRN (00:24)
[2020-02-03 00:55] LABS: ABG HCO3 26.9 MMOL/L (20-26); ABG Oxygen Saturation 89.6 % (95-100); ABG PCO2 47.9 MM HG (35-48); ABG PH 7.384 (7.35-7.45); ABG PO2 59.2 MM HG (80-95); ABG TCO2 26.2 MMOL/L (23-27)
[2020-02-03] MEDS: ALBUTEROL 2.5 MG/3 ML NEB RESP TX SCH ×6 (00:55→20:18)
[2020-02-03] MEDS ORDERED: GLUCAGON 1 MG VIAL IM PRN (01:56)
[2020-02-03] MEDS ORDERED: DEXTROSE 50% 25 GM/50 ML VIAL IV PRN (01:56)
[2020-02-03 03:37] LABS: ABG Base Excess 3.1 MMOL/L (-2.5-2.5); ABG HCO3 27.1 MMOL/L (20-26); ABG Oxygen Saturation 94.3 % (95-100); ABG PH 7.412 (7.35-7.45); ABG PO2 69.5 MM HG (80-95); ABG TCO2 25.5 MMOL/L (23-27); Allen Test Positive; Pt O2 Delivery Device Other
[2020-02-03 05:35] LABS: Basophils % 0.1 % (0.0-0.8); Hematocrit 31.3 VOL% (42.0-52.0); Hemoglobin 9.4 GM/DL (14.0-18.0); Immature Granulocytes % 0.6 %; Immature Granulocytes Absolute 0.06 #; Lymphocytes # 0.2 10*3/uL (1.4-4.0); Lymphocytes % 2.2 % (21.2-54.2); Mean Corpuscular Volume 98.7 FL (87-102); Mean Platelet Volume 11.7 FL (9.6-12.0); Monocytes % 0.7 % (1.7-12.7); Neutrophils % 96.4 % (38.7-73.9); Platelet Count 260 T/CUMM (130-400); Red Blood Count 3.17 MC/CUMM (3.8-5.5); Red Cell Distribution Width 18.3 % (9.3-17.3); White Blood Count 9.3 T/CUMM (4-12)
[2020-02-03 05:47] LABS: Albumin 3.3 G/DL (3.4-5.0); Bilirubin,Total 0.8 MG/DL (0.2-1.0); Calcium 8.6 MG/DL (8.5-10.1); Osmolality,Calculated 295.5 MOS/KG (273-304); Total Protein 7.2 G/DL (6.4-8.3)
[2020-02-03 06:14] LABS: Anisocytosis 2+; Lymphocytes 1 % (20-55); Platelet Estimate Normal; Segmented Neutrophils 99 % (50-85); Total Cells Counted 100
[2020-02-03 06:15] LABS: Poikilocytosis 1+
[2020-02-03] MEDS ORDERED: RACEPINEPHRINE 0.5 ML NEB RESP TX PRN ×2 (09:36→10:30)
[2020-02-03] MEDS: PANTOPRAZOLE 40 MG TABLET PO SCH (09:39)
[2020-02-03] MEDS: FUROSEMIDE 40 MG/4 ML VIAL IV SCH ×2 (09:39→16:27)
[2020-02-03] MEDS ORDERED: RACEPINEPHRINE 0.5 ML NEB RESP TX SCH (10:00)
[2020-02-03] MEDS: INSULIN LISPRO 100 UNIT/ML SUBCUT SCH ×4 (10:06→21:22)
[2020-02-03] MEDS: RACEPINEPHRINE 0.5 ML NEB RESP TX SCH ×2 (11:42→20:18)
[2020-02-04] MEDS: ALBUTEROL 2.5 MG/3 ML NEB RESP TX SCH ×6 (01:24→20:03)
[2020-02-04] MEDS: RACEPINEPHRINE 0.5 ML NEB RESP TX SCH ×4 (01:24→20:03)
[2020-02-04 05:25] LABS: Basophils % 0.5 % (0.0-0.8); Eosinophils % 0.3 % (0.00-10.9); Hematocrit 29.8 VOL% (42.0-52.0); Hemoglobin 9.3 GM/DL (14.0-18.0); Immature Granulocytes % 0.3 %; Immature Granulocytes Absolute 0.03 #; Lymphocytes # 1.3 10*3/uL (1.4-4.0); Lymphocytes % 14.5 % (21.2-54.2); Mean Corpuscular HGB Conc 31.2 GM/DL (32-36); Mean Corpuscular Volume 97.4 FL (87-102); Mean Platelet Volume 11.4 FL (9.6-12.0); Monocytes % 11.5 % (1.7-12.7); Neutrophils % 72.9 % (38.7-73.9); Platelet Count 275 T/CUMM (130-400); Red Blood Count 3.06 MC/CUMM (3.8-5.5); Red Cell Distribution Width 18.4 % (9.3-17.3); White Blood Count 8.7 T/CUMM (4-12)
[2020-02-04 05:36] LABS: INR 1.1; PT Patient Result 12.2 SECS (9.6-12.2); Partial Thromboplastin Time 28.7 SECS (20.8-36.0)
[2020-02-04 05:49] LABS: Calcium 8.3 MG/DL (8.5-10.1); Osmolality,Calculated 285.7 MOS/KG (273-304)
[2020-02-04] MEDS ORDERED: MEPERIDINE 50 MG/1 ML VIAL IM ONE (08:00)
[2020-02-04] MEDS ORDERED: diphenhydrAMINE 50 MG/1 ML VIAL IM ONE (08:00)
[2020-02-04] MEDS ORDERED: BENZONATATE 100 MG CAPSULE PO ONE (08:00)
[2020-02-04] MEDS ORDERED: LIDOCAINE 2% 20 ML VIAL RESP TX ONE (08:30)
[2020-02-04] MEDS ORDERED: LIDOCAINE 2% VISCOUS 100 ML BOTTLE SWISH/SPIT ONE (08:30)
[2020-02-04] MEDS ORDERED: LIDOCAINE 1% 20 ML VIAL MISC INJ ONE (08:30)
[2020-02-04] MEDS: INSULIN LISPRO 100 UNIT/ML SUBCUT SCH ×4 (10:29→20:04)
[2020-02-04] MEDS: FUROSEMIDE 40 MG/4 ML VIAL IV SCH ×2 (10:51→17:14)
[2020-02-04] MEDS: PANTOPRAZOLE 40 MG TABLET PO SCH (12:03)
[2020-02-04] MEDS: POTASSIUM CHLORIDE 20 MEQ TABLET PO PRN (12:03)
[2020-02-05] MEDS: ALBUTEROL 2.5 MG/3 ML NEB RESP TX SCH ×4 (00:15→11:20)
[2020-02-05] MEDS: RACEPINEPHRINE 0.5 ML NEB RESP TX SCH ×3 (00:15→11:20)
[2020-02-05 04:36] LABS: Basophils % 0.5 % (0.0-0.8); Eosinophils # 0.2 10*3/uL (0.0-0.87); Eosinophils % 2.2 % (0.00-10.9); Hemoglobin 8.6 GM/DL (14.0-18.0); Immature Granulocytes % 0.7 %; Immature Granulocytes Absolute 0.05 #; Lymphocytes % 13.5 % (21.2-54.2); Mean Corpuscular HGB Conc 31.9 GM/DL (32-36); Mean Corpuscular Volume 96.1 FL (87-102); Monocytes % 10.8 % (1.7-12.7); Neutrophils % 72.3 % (38.7-73.9); Platelet Count 237 T/CUMM (130-400); Red Blood Count 2.81 MC/CUMM (3.8-5.5); Red Cell Distribution Width 18.5 % (9.3-17.3); White Blood Count 7.7 T/CUMM (4-12)
[2020-02-05 04:58] LABS: Osmolality,Calculated 288.8 MOS/KG (273-304)
[2020-02-05 08:06] VITALS: BP 182/86
[2020-02-05] MEDS: INSULIN LISPRO 100 UNIT/ML SUBCUT SCH ×2 (08:53→12:01)
[2020-02-05] MEDS: POTASSIUM CHLORIDE 20 MEQ TABLET PO PRN (08:54)
[2020-02-05] MEDS: PANTOPRAZOLE 40 MG TABLET PO SCH (08:54)
[2020-02-05] MEDS ORDERED: LEVOFLOXACIN INJ 500 MG in PREMIX 1 EACH IV SCH (09:00)
[2020-02-05] MEDS ORDERED: ASPIRIN EC 81 MG TABLET PO SCH (09:30)
[2020-02-05] MEDS ORDERED: TAMSULOSIN 0.4 MG CAPSULE PO SCH (09:30)
[2020-02-05] MEDS ORDERED: ATORVASTATIN 40 MG TABLET PO SCH (09:30)
[2020-02-05] MEDS ORDERED: carvediloL 12.5 MG TABLET PO SCH (09:30)
[2020-02-05] MEDS: FUROSEMIDE 40 MG/4 ML VIAL IV SCH (09:33)
[2020-02-05 10:20] LABS: Apearance,Urine CLEAR (Clear); Bilirubin,Urine Negative (Negative); Blood, Urine Moderate mg/dL (Negative); Glucose,Urine (UA) 50 mg/dL (Negative); Ketones,Urine Negative (Negative); Nitrite,Urine Negative (Negative); Protein,Urine 100 MG/DL; RBC,Urine 73 /HPF (0-4); Urine Color Yellow (Yellow); Urine Urobilinogen < 2.0 EU/DL (0.2-1.0); WBC,Urine 2 /HPF (0-6)
[2020-02-05] MEDS ORDERED: hydrALAZINE 25 MG TABLET PO SCH (15:00)
[2020-02-05] MEDS ORDERED: NON-FORMULARY MEDICATION (Ferric Citrate [Auryxia] 210 MG) PO SCH (15:00)
[2020-02-05] MEDS ORDERED: PANTOPRAZOLE 40 MG TABLET PO SCH (17:00)
== END 2020-02-05 12:58 | disposition home or self-care (01) | DRG 640 ==
LOC: N.ED 22:42 → SUATTDRO 02-03 00:24 → N.EDINP 02-03 00:24 → N.TELES 02-03 02:02
PROVIDERS: ADMIT Internal Medicine; ATTEND Internal Medicine

== ENCOUNTER 2021-05-07 01:21 | Inpatient (IN) ==
[2021-05-07] MEDS ORDERED: OXYMETAZOLINE 0.05% NASAL SPRAY 15 ML BOTTLE BOTH NARES STA (01:49)
[2021-05-07] MEDS ORDERED: OXYMETAZOLINE 0.05% NASAL SPRAY 15 ML BOTTLE ONE (01:50)
[2021-05-07 02:26] LABS: Basophils % 0.5 % (0.0-0.8); Eosinophils # 0.1 10*3/uL (0.0-0.87); Eosinophils % 1.6 % (0.00-10.9); Hematocrit 18.2 VOL% (42.0-52.0); Immature Granulocytes % 0.4 %; Immature Granulocytes Absolute 0.03 #; Lymphocytes % 11.8 % (21.2-54.2); Mean Corpuscular HGB Conc 31.9 GM/DL (32-36); Mean Corpuscular Volume 102.8 FL (87-102); Monocytes % 7.3 % (1.7-12.7); Neutrophils % 78.4 % (38.7-73.9); Platelet Count 223 T/CUMM (130-400); Red Blood Count 1.77 MC/CUMM (3.8-5.5); Red Cell Distribution Width 14.6 % (9.3-17.3); White Blood Count 8.2 T/CUMM (4-12)
[2021-05-07 02:38] LABS: Hemoglobin 5.8 GM/DL (14.0-18.0)
[2021-05-07 02:46] LABS: Alanine Aminotransferase < 9 U/L (16-61); Albumin 2.6 G/DL (3.4-5.0); Alkaline Phosphatase 77 U/L (45-117); Aspartate Amino Transferase 19 U/L (0-37); Blood Urea Nitrogen 43 MG/DL (7-18); Carbon Dioxide 30 MMOL/L (21-32); Estimated Glom Filtration Rate 7 ML/MIN; Glucose 76 MG/DL (74-106); Osmolality,Calculated 284.7 MOS/KG (273-304); Potassium 3.9 MMOL/L (3.5-5.1); Sodium 138 MMOL/L (136-145)
[2021-05-07 03:07] LABS: INR 1.3; PT Patient Result 13.8 SECS (10.5-12.0)
[2021-05-07] MEDS ORDERED: GLUCAGON 1 MG VIAL IM PRN (03:51)
[2021-05-07] MEDS ORDERED: DEXTROSE 50% 25 GM/50 ML VIAL IV PRN (03:51)
[2021-05-07] MEDS ORDERED: ONDANSETRON 4 MG/2 ML VIAL IV PRN (04:00)
[2021-05-07] MEDS ORDERED: DOCUSATE SODIUM 100 MG CAPSULE PO PRN (04:00)
[2021-05-07] MEDS ORDERED: ACETAMINOPHEN 325 MG TABLET PO PRN (04:00)
[2021-05-07] MEDS ORDERED: SODIUM CHLORIDE 0.9% 1,000 ML IV PRN ×3 (04:23→16:06)
[2021-05-07] MEDS ORDERED: OXYMETAZOLINE 0.05% NASAL SPRAY 15 ML BOTTLE BOTH NARES PRN (06:27)
[2021-05-07] MEDS: carvediloL 12.5 MG TABLET PO SCH ×2 (10:13→20:54)
[2021-05-07] MEDS: ISOSORBIDE MONONITRATE 30 MG TABLET PO SCH (10:13)
[2021-05-07] MEDS: hydrALAZINE 25 MG TABLET PO SCH ×3 (10:13→20:54)
[2021-05-07] MEDS: NON-FORMULARY MEDICATION (Ferric Citrate [Auryxia] 210 mg iron Tablet) PO SCH ×2 (10:14→21:06)
[2021-05-07] MEDS: PANTOPRAZOLE 40 MG TABLET PO SCH (10:15)
[2021-05-07 11:48] LABS: Hematocrit 19.3 VOL% (42.0-52.0)
[2021-05-07 11:50] LABS: Hemoglobin 6.4 GM/DL (14.0-18.0)
[2021-05-07] MEDS: TAMSULOSIN 0.4 MG CAPSULE PO SCH (18:33)
[2021-05-07 20:05] LABS: Total Protein,Peritoneal Fluid 4.4 G/DL
[2021-05-07 20:26] LABS: Neutrophils,Peritoneal Fluid 5 %
[2021-05-07 20:27] LABS: RBC,Peritoneal Fluid 158 T/CUMM
[2021-05-07] MEDS: ATORVASTATIN 20 MG TABLET PO SCH (20:54)
[2021-05-07 20:57] LABS: Hematocrit 21.2 VOL% (42.0-52.0); Hemoglobin 7.1 GM/DL (14.0-18.0)
[2021-05-08] MEDS ORDERED: MULTIVITAMIN (BEROCCA) TABLET PO SCH (04:38)
[2021-05-08 05:52] LABS: Basophils # 0.1 10*3/uL (0.0-0.2); Basophils % 0.5 % (0.0-0.8); Eosinophils # 0.1 10*3/uL (0.0-0.87); Hemoglobin 6.7 GM/DL (14.0-18.0); Immature Granulocytes % 0.5 %; Immature Granulocytes Absolute 0.05 #; Lymphocytes # 1.1 10*3/uL (1.4-4.0); Lymphocytes % 9.9 % (21.2-54.2); Mean Corpuscular HGB Conc 33.5 GM/DL (32-36); Mean Corpuscular Volume 96.2 FL (87-102); Mean Platelet Volume 11.3 FL (9.6-12.0); Monocytes % 5.8 % (1.7-12.7); Neutrophils % 82.3 % (38.7-73.9); Platelet Count 171 T/CUMM (130-400); Red Blood Count 2.08 MC/CUMM (3.8-5.5); Red Cell Distribution Width 18.1 % (9.3-17.3); White Blood Count 10.9 T/CUMM (4-12)
[2021-05-08 06:19] LABS: Alanine Aminotransferase < 9 U/L (16-61); Albumin 2.4 G/DL (3.4-5.0); Alkaline Phosphatase 67 U/L (45-117); Aspartate Amino Transferase 13 U/L (0-37); Blood Urea Nitrogen 82 MG/DL (7-18); Calcium 8.4 MG/DL (8.5-10.1); Carbon Dioxide 29 MMOL/L (21-32); Estimated Glom Filtration Rate 6 ML/MIN; Glucose 146 MG/DL (74-106); Osmolality,Calculated 295.2 MOS/KG (273-304); Potassium 4.3 MMOL/L (3.5-5.1); Sodium 134 MMOL/L (136-145); Total Protein 6.1 G/DL (6.4-8.2)
[2021-05-08] MEDS ORDERED: SODIUM CHLORIDE 0.9% 1,000 ML IV PRN (08:20)
[2021-05-08] MEDS: NON-FORMULARY MEDICATION (Ferric Citrate [Auryxia] 210 mg iron Tablet) PO SCH ×2 (09:13→21:00)
[2021-05-08] MEDS: PANTOPRAZOLE 40 MG TABLET PO SCH (09:15)
[2021-05-08] MEDS: carvediloL 12.5 MG TABLET PO SCH ×2 (14:38→21:28)
[2021-05-08] MEDS: hydrALAZINE 25 MG TABLET PO SCH ×3 (14:38→21:28)
[2021-05-08] MEDS: ISOSORBIDE MONONITRATE 30 MG TABLET PO SCH (14:39)
[2021-05-08] MEDS: TAMSULOSIN 0.4 MG CAPSULE PO SCH (18:21)
[2021-05-08] MEDS: ATORVASTATIN 20 MG TABLET PO SCH (21:28)
[2021-05-09 07:51] LABS: Hematocrit 26.4 VOL% (42.0-52.0)
[2021-05-09 08:03] LABS: Hemoglobin 8.9 GM/DL (14.0-18.0)
[2021-05-09] MEDS: PANTOPRAZOLE 40 MG TABLET PO SCH (09:11)
[2021-05-09] MEDS: carvediloL 12.5 MG TABLET PO SCH (09:11)
[2021-05-09] MEDS: NON-FORMULARY MEDICATION (Ferric Citrate [Auryxia] 210 mg iron Tablet) PO SCH (09:11)
[2021-05-09] MEDS: ISOSORBIDE MONONITRATE 30 MG TABLET PO SCH (09:11)
[2021-05-09] MEDS: hydrALAZINE 25 MG TABLET PO SCH ×2 (09:11→14:51)
[2021-05-09 12:15] VITALS: BP 135/66
== END 2021-05-09 16:30 | disposition home or self-care (01) | DRG 811 ==
LOC: N.EDINP 01:21 → N.ED 01:21 → SUATTDRO 03:46 → N.3E 04:12 → SUATTDRO 04:41
PROVIDERS: ADMIT Internal Medicine; ATTEND Internal Medicine

== ENCOUNTER 2021-08-07 13:27 | Inpatient (IN) ==
[2021-08-07 15:29] LABS: Basophils % 0.1 % (0.0-0.8); Eosinophils # 0.1 10*3/uL (0.0-0.87); Eosinophils % 0.7 % (0.00-10.9); Hemoglobin 11.9 GM/DL (14.0-18.0); Immature Granulocytes % 0.9 %; Immature Granulocytes Absolute 0.07 #; Lymphocytes # 0.4 10*3/uL (1.4-4.0); Lymphocytes % 5.1 % (21.2-54.2); Mean Corpuscular HGB Conc 33.1 GM/DL (32-36); Mean Corpuscular Volume 93.5 FL (87-102); Mean Platelet Volume 11.8 FL (9.6-12.0); Monocytes % 1.6 % (1.7-12.7); Neutrophils % 91.6 % (38.7-73.9); Platelet Count 268 T/CUMM (130-400); Red Blood Count 3.85 MC/CUMM (3.8-5.5); White Blood Count 8.2 T/CUMM (4-12)
[2021-08-07 15:42] LABS: INR 1.1; PT Patient Result 12.4 SECS (10.5-12.0); Partial Thromboplastin Time 41.4 SECS (23.9-33.8)
[2021-08-07 15:59] LABS: Anisocytosis 2+; Band Neutrophils 23 % (0-10); Eosinophils 1 % (0-10); Lymphocytes 7 % (20-55); Platelet Estimate Normal; Poikilocytosis 1+; Segmented Neutrophils 69 % (50-85); Total Cells Counted 100
[2021-08-07 16:00] LABS: Acanthocytes Few; Burr Cells 2+; Macrocytosis 1+
[2021-08-07 16:04] LABS: Alanine Aminotransferase 24 U/L (16-61); Albumin 1.9 G/DL (3.4-5.0); Alkaline Phosphatase 125 U/L (45-117); Aspartate Amino Transferase 70 U/L (0-37); Blood Urea Nitrogen 56 MG/DL (7-18); Calcium 7.5 MG/DL (8.5-10.1); Carbon Dioxide 24 MMOL/L (21-32); Estimated Glom Filtration Rate 7 ML/MIN; Glucose 81 MG/DL (74-106); Osmolality,Calculated 282.2 MOS/KG (273-304); Potassium 3.9 MMOL/L (3.5-5.1); Sodium 134 MMOL/L (136-145); Total Protein 6.6 G/DL (6.4-8.2)
[2021-08-07] MEDS ORDERED: GLUCAGON 1 MG VIAL IM PRN (16:37)
[2021-08-07] MEDS ORDERED: ACETAMINOPHEN 325 MG TABLET PO PRN (16:37)
[2021-08-07] MEDS ORDERED: DEXTROSE 50% 25 GM/50 ML VIAL IV PRN ×2 (16:37)
[2021-08-07] MEDS ORDERED: ONDANSETRON 4 MG/2 ML VIAL IV PRN (16:37)
[2021-08-07 17:13] LABS: Thyroid Stimulating Hormone 5.99 uIU/ml (0.358-3.74); VLDL Cholesterol 31.8 MG/DL
[2021-08-07 17:49] LABS: Ferritin 5453.3 ng/mL (26-388)
[2021-08-07] MEDS: DEXAMETHASONE 4 MG/1 ML VIAL IV SCH (19:32)
[2021-08-07] MEDS: HEPARIN 5,000 UNIT/1 ML VIAL SUBCUT SCH (19:32)
[2021-08-07] MEDS: cefTRIAXone 1,000 MG in SODIUM CHLORIDE 0.9% 100 ML IV SCH (19:33)
[2021-08-07] MEDS: ALBUTEROL INHALER 18 GM INH SCH (20:15)
[2021-08-07] MEDS: hydrALAZINE 25 MG TABLET PO SCH (21:12)
[2021-08-07] MEDS: TAMSULOSIN 0.4 MG CAPSULE PO SCH (21:13)
[2021-08-07] MEDS: carvediloL 12.5 MG TABLET PO SCH (21:13)
[2021-08-07] MEDS: INSULIN LISPRO 100 UNIT/ML SUBCUT SCH (21:13)
[2021-08-07] MEDS: ATORVASTATIN 40 MG TABLET PO SCH (21:14)
[2021-08-07] MEDS: FAMOTIDINE 20 MG TABLET PO SCH (21:14)
[2021-08-07] MEDS: ASCORBIC ACID 500 MG TABLET PO SCH (21:16)
[2021-08-08] MEDS: ALBUTEROL INHALER 18 GM INH SCH ×4 (02:07→20:48)
[2021-08-08] MEDS: HEPARIN 5,000 UNIT/1 ML VIAL SUBCUT SCH ×2 (04:16→19:18)
[2021-08-08 05:22] LABS: Basophils % 0.1 % (0.0-0.8); Hematocrit 36.8 VOL% (42.0-52.0); Hemoglobin 12.3 GM/DL (14.0-18.0); Immature Granulocytes % 0.7 %; Immature Granulocytes Absolute 0.07 #; Lymphocytes # 0.3 10*3/uL (1.4-4.0); Lymphocytes % 2.9 % (21.2-54.2); Mean Corpuscular HGB Conc 33.4 GM/DL (32-36); Mean Corpuscular Volume 92.9 FL (87-102); Mean Platelet Volume 11.7 FL (9.6-12.0); Neutrophils % 95.3 % (38.7-73.9); Platelet Count 256 T/CUMM (130-400); Red Blood Count 3.96 MC/CUMM (3.8-5.5); Red Cell Distribution Width 15.9 % (9.3-17.3); White Blood Count 10.1 T/CUMM (4-12)
[2021-08-08 05:48] LABS: Calcium 7.2 MG/DL (8.5-10.1); Osmolality,Calculated 282.4 MOS/KG (273-304); Potassium 4.4 MMOL/L (3.5-5.1)
[2021-08-08 05:49] LABS: Band Neutrophils 12 % (0-10); Lymphocytes 2 % (20-55); Segmented Neutrophils 86 % (50-85); Total Cells Counted 100
[2021-08-08 05:50] LABS: Acanthocytes Few; Burr Cells 2+; Hypochromasia 1+; Macrocytosis 1+; Platelet Estimate Normal
[2021-08-08] MEDS: INSULIN LISPRO 100 UNIT/ML SUBCUT SCH ×4 (08:15→21:50)
[2021-08-08] MEDS: CETIRIZINE 10 MG TABLET PO SCH (08:40)
[2021-08-08] MEDS: ASPIRIN CHEW 81 MG TABLET PO SCH (08:40)
[2021-08-08] MEDS: CHOLECALCIFEROL 1,000 UNIT TABLET PO SCH (08:40)
[2021-08-08] MEDS: ZINC SULFATE 220 MG CAPSULE PO SCH (08:40)
[2021-08-08] MEDS: ISOSORBIDE MONONITRATE 30 MG TABLET PO SCH (08:41)
[2021-08-08] MEDS: carvediloL 12.5 MG TABLET PO SCH ×2 (08:41→20:45)
[2021-08-08] MEDS: ASCORBIC ACID 500 MG TABLET PO SCH ×2 (08:41→20:45)
[2021-08-08] MEDS: hydrALAZINE 25 MG TABLET PO SCH ×3 (08:41→20:45)
[2021-08-08] MEDS: AZITHROMYCIN 250 MG TABLET PO SCH (08:41)
[2021-08-08] MEDS: DEXAMETHASONE 4 MG/1 ML VIAL IV SCH (19:45)
[2021-08-08] MEDS: FAMOTIDINE 20 MG TABLET PO SCH (20:45)
[2021-08-08] MEDS: ATORVASTATIN 40 MG TABLET PO SCH (20:45)
[2021-08-08] MEDS: TAMSULOSIN 0.4 MG CAPSULE PO SCH (20:45)
[2021-08-08] MEDS: cefTRIAXone 1,000 MG in SODIUM CHLORIDE 0.9% 100 ML IV SCH (21:51)
[2021-08-09] MEDS: ALBUTEROL INHALER 18 GM INH SCH ×4 (01:15→21:06)
[2021-08-09 05:02] LABS: ABG Base Excess 0.6 MMOL/L (-2.5-2.5); ABG Oxygen Saturation 99.8 % (95-100); ABG PCO2 38.9 MM HG (35-48); ABG PH 7.417 (7.35-7.45); ABG TCO2 22.6 MMOL/L (23-27)
[2021-08-09] MEDS: HEPARIN 5,000 UNIT/1 ML VIAL SUBCUT SCH ×3 (05:27→16:30)
[2021-08-09 07:02] LABS: Basophils % 0.1 % (0.0-0.8); Hematocrit 31.2 VOL% (42.0-52.0); Hemoglobin 10.6 GM/DL (14.0-18.0); Immature Granulocytes % 0.9 %; Immature Granulocytes Absolute 0.08 #; Lymphocytes # 0.3 10*3/uL (1.4-4.0); Lymphocytes % 3.9 % (21.2-54.2); Mean Corpuscular Volume 94.3 FL (87-102); Mean Platelet Volume 11.4 FL (9.6-12.0); Monocytes % 1.3 % (1.7-12.7); Neutrophils % 93.8 % (38.7-73.9); Platelet Count 245 T/CUMM (130-400); Red Blood Count 3.31 MC/CUMM (3.8-5.5); Red Cell Distribution Width 16.3 % (9.3-17.3); White Blood Count 8.5 T/CUMM (4-12)
[2021-08-09 07:28] LABS: Band Neutrophils 4 % (0-10); Hypochromasia 1+; Lymphocytes 2 % (20-55); Polychromasia Slight; Segmented Neutrophils 91 % (50-85); Total Cells Counted 100
[2021-08-09 07:29] LABS: Acanthocytes Few; Burr Cells 1+; Macrocytosis 1+; Platelet Estimate Normal
[2021-08-09] MEDS: INSULIN LISPRO 100 UNIT/ML SUBCUT SCH ×4 (07:44→21:05)
[2021-08-09 07:50] LABS: Ferritin 4371.5 ng/mL (26-388); Potassium 4.2 MMOL/L (3.5-5.1)
[2021-08-09] MEDS: hydrALAZINE 25 MG TABLET PO SCH ×3 (10:00→21:04)
[2021-08-09] MEDS: AZITHROMYCIN 250 MG TABLET PO SCH (10:00)
[2021-08-09] MEDS: ISOSORBIDE MONONITRATE 30 MG TABLET PO SCH (10:00)
[2021-08-09] MEDS: CHOLECALCIFEROL 1,000 UNIT TABLET PO SCH (10:00)
[2021-08-09] MEDS: ASCORBIC ACID 500 MG TABLET PO SCH ×2 (10:00→21:07)
[2021-08-09] MEDS: ZINC SULFATE 220 MG CAPSULE PO SCH (10:00)
[2021-08-09] MEDS: ASPIRIN CHEW 81 MG TABLET PO SCH (10:01)
[2021-08-09] MEDS: CETIRIZINE 10 MG TABLET PO SCH (10:01)
[2021-08-09] MEDS: carvediloL 12.5 MG TABLET PO SCH ×2 (10:02→21:07)
[2021-08-09] MEDS: DEXAMETHASONE 4 MG/1 ML VIAL IV SCH (11:04)
[2021-08-09] MEDS: FAMOTIDINE 20 MG TABLET PO SCH (21:07)
[2021-08-09] MEDS: TAMSULOSIN 0.4 MG CAPSULE PO SCH (21:07)
[2021-08-09] MEDS: ATORVASTATIN 40 MG TABLET PO SCH (21:07)
[2021-08-09] MEDS: cefTRIAXone 1,000 MG in SODIUM CHLORIDE 0.9% 100 ML IV SCH (21:23)
[2021-08-10] MEDS: ALBUTEROL INHALER 18 GM INH SCH ×4 (01:52→23:14)
[2021-08-10] MEDS: HEPARIN 5,000 UNIT/1 ML VIAL SUBCUT SCH ×3 (02:03→17:52)
[2021-08-10 06:12] LABS: Basophils % 0.1 % (0.0-0.8); Hematocrit 30.1 VOL% (42.0-52.0); Hemoglobin 9.8 GM/DL (14.0-18.0); Immature Granulocytes % 0.9 %; Immature Granulocytes Absolute 0.07 #; Lymphocytes # 0.4 10*3/uL (1.4-4.0); Lymphocytes % 5.8 % (21.2-54.2); Mean Corpuscular HGB Conc 32.6 GM/DL (32-36); Mean Corpuscular Volume 95.3 FL (87-102); Mean Platelet Volume 11.3 FL (9.6-12.0); Monocytes % 2.3 % (1.7-12.7); Neutrophils % 90.9 % (38.7-73.9); Platelet Count 259 T/CUMM (130-400); Red Blood Count 3.16 MC/CUMM (3.8-5.5); Red Cell Distribution Width 16.4 % (9.3-17.3); White Blood Count 7.5 T/CUMM (4-12)
[2021-08-10 06:40] LABS: Burr Cells Slight; Hypochromasia Slight; Lymphocytes 3 % (20-55); Ovalocytes Slight; Platelet Estimate Adequate; Segmented Neutrophils 96 % (50-85); Total Cells Counted 100
[2021-08-10 06:41] LABS: Macrocytosis Slight
[2021-08-10 06:44] LABS: Ferritin 4268.5 ng/mL (26-388); Osmolality,Calculated 288.2 MOS/KG (273-304); Potassium 4.2 MMOL/L (3.5-5.1)
[2021-08-10] MEDS: INSULIN LISPRO 100 UNIT/ML SUBCUT SCH ×4 (07:33→23:16)
[2021-08-10] MEDS: ASPIRIN CHEW 81 MG TABLET PO SCH (08:20)
[2021-08-10] MEDS: CHOLECALCIFEROL 1,000 UNIT TABLET PO SCH (08:20)
[2021-08-10] MEDS: AZITHROMYCIN 250 MG TABLET PO SCH (08:21)
[2021-08-10] MEDS: ZINC SULFATE 220 MG CAPSULE PO SCH (08:21)
[2021-08-10] MEDS: ASCORBIC ACID 500 MG TABLET PO SCH ×2 (08:21→23:15)
[2021-08-10] MEDS: hydrALAZINE 25 MG TABLET PO SCH ×3 (08:21→23:13)
[2021-08-10] MEDS: ISOSORBIDE MONONITRATE 30 MG TABLET PO SCH (08:21)
[2021-08-10] MEDS: carvediloL 12.5 MG TABLET PO SCH ×2 (08:21→23:13)
[2021-08-10] MEDS: CETIRIZINE 10 MG TABLET PO SCH (08:21)
[2021-08-10] MEDS: DEXAMETHASONE 4 MG/1 ML VIAL IV SCH (08:22)
[2021-08-10] MEDS: ATORVASTATIN 40 MG TABLET PO SCH (23:13)
[2021-08-10] MEDS: FAMOTIDINE 20 MG TABLET PO SCH (23:13)
[2021-08-10] MEDS: cefTRIAXone 1,000 MG in SODIUM CHLORIDE 0.9% 100 ML IV SCH (23:14)
[2021-08-10] MEDS: TAMSULOSIN 0.4 MG CAPSULE PO SCH (23:15)
[2021-08-11] MEDS: ALBUTEROL INHALER 18 GM INH SCH ×4 (01:00→21:50)
[2021-08-11] MEDS: HEPARIN 5,000 UNIT/1 ML VIAL SUBCUT SCH ×3 (01:43→16:15)
[2021-08-11 05:44] LABS: Basophils % 0.1 % (0.0-0.8); Eosinophils % 0.4 % (0.00-10.9); Hematocrit 32.5 VOL% (42.0-52.0); Hemoglobin 10.4 GM/DL (14.0-18.0); Immature Granulocytes % 1.3 %; Immature Granulocytes Absolute 0.09 #; Lymphocytes # 0.5 10*3/uL (1.4-4.0); Lymphocytes % 7.3 % (21.2-54.2); Mean Corpuscular Volume 96.7 FL (87-102); Mean Platelet Volume 11.1 FL (9.6-12.0); Monocytes % 1.9 % (1.7-12.7); Platelet Count 257 T/CUMM (130-400); Red Blood Count 3.36 MC/CUMM (3.8-5.5); Red Cell Distribution Width 16.5 % (9.3-17.3); White Blood Count 6.9 T/CUMM (4-12)
[2021-08-11 06:17] LABS: Hypochromasia 1+; Lymphocytes 6 % (20-55); Microcytosis 1+; Nucleated Red Blood Cells 1 (0-5); Ovalocytes Slight; Platelet Estimate Adequate; Segmented Neutrophils 94 % (50-85); Total Cells Counted 100
[2021-08-11 06:34] LABS: Calcium 7.6 MG/DL (8.5-10.1); Ferritin 4422.6 ng/mL (26-388); Osmolality,Calculated 283.8 MOS/KG (273-304)
[2021-08-11] MEDS: INSULIN LISPRO 100 UNIT/ML SUBCUT SCH ×4 (07:56→22:07)
[2021-08-11] MEDS: CETIRIZINE 10 MG TABLET PO SCH (08:34)
[2021-08-11] MEDS: ASPIRIN CHEW 81 MG TABLET PO SCH (08:34)
[2021-08-11] MEDS: ASCORBIC ACID 500 MG TABLET PO SCH ×2 (08:34→21:40)
[2021-08-11] MEDS: CHOLECALCIFEROL 1,000 UNIT TABLET PO SCH (08:34)
[2021-08-11] MEDS: DEXAMETHASONE 4 MG/1 ML VIAL IV SCH (08:34)
[2021-08-11] MEDS: hydrALAZINE 25 MG TABLET PO SCH ×3 (08:35→21:50)
[2021-08-11] MEDS: carvediloL 12.5 MG TABLET PO SCH ×2 (08:35→21:45)
[2021-08-11] MEDS: ISOSORBIDE MONONITRATE 30 MG TABLET PO SCH (08:35)
[2021-08-11] MEDS: ZINC SULFATE 220 MG CAPSULE PO SCH (08:35)
[2021-08-11] MEDS: cefTRIAXone 1,000 MG in SODIUM CHLORIDE 0.9% 100 ML IV SCH (21:39)
[2021-08-11] MEDS: ATORVASTATIN 40 MG TABLET PO SCH (21:40)
[2021-08-11] MEDS: TAMSULOSIN 0.4 MG CAPSULE PO SCH (21:42)
[2021-08-11] MEDS: FAMOTIDINE 20 MG TABLET PO SCH (22:04)
[2021-08-12] MEDS: HEPARIN 5,000 UNIT/1 ML VIAL SUBCUT SCH ×3 (03:03→16:47)
[2021-08-12] MEDS: ALBUTEROL INHALER 18 GM INH SCH ×4 (03:03→20:44)
[2021-08-12 07:00] LABS: Basophils % 0.2 % (0.0-0.8); Eosinophils % 0.2 % (0.00-10.9); Hematocrit 34.2 VOL% (42.0-52.0); Hemoglobin 11.4 GM/DL (14.0-18.0); Immature Granulocytes % 1.7 %; Lymphocytes # 0.6 10*3/uL (1.4-4.0); Lymphocytes % 9.7 % (21.2-54.2); Mean Corpuscular HGB Conc 33.3 GM/DL (32-36); Mean Corpuscular Volume 96.1 FL (87-102); Mean Platelet Volume 11.7 FL (9.6-12.0); Monocytes % 2.5 % (1.7-12.7); NRBC # 0.03 10*3/uL; Neutrophils % 85.7 % (38.7-73.9); Platelet Count 239 T/CUMM (130-400); Red Blood Count 3.56 MC/CUMM (3.8-5.5); Red Cell Distribution Width 16.5 % (9.3-17.3); White Blood Count 6.1 T/CUMM (4-12)
[2021-08-12 07:29] LABS: Calcium 7.4 MG/DL (8.5-10.1); Osmolality,Calculated 288.8 MOS/KG (273-304); Potassium 4.3 MMOL/L (3.5-5.1)
[2021-08-12] MEDS: INSULIN LISPRO 100 UNIT/ML SUBCUT SCH ×4 (08:00→21:00)
[2021-08-12 08:03] LABS: Acanthocytes Few; Anisocytosis 2+; Band Neutrophils 4 % (0-10); Burr Cells 2+; Eosinophils 1 % (0-10); Lymphocytes 12 % (20-55); Macrocytosis 1+; Platelet Estimate Normal; Segmented Neutrophils 80 % (50-85); Total Cells Counted 100
[2021-08-12] MEDS: hydrALAZINE 25 MG TABLET PO SCH ×3 (09:25→22:44)
[2021-08-12] MEDS: carvediloL 12.5 MG TABLET PO SCH ×2 (09:25→20:46)
[2021-08-12] MEDS: ASCORBIC ACID 500 MG TABLET PO SCH ×2 (10:25→20:45)
[2021-08-12] MEDS: ISOSORBIDE MONONITRATE 30 MG TABLET PO SCH (10:25)
[2021-08-12] MEDS: DEXAMETHASONE 4 MG/1 ML VIAL IV SCH (10:25)
[2021-08-12] MEDS: ASPIRIN CHEW 81 MG TABLET PO SCH (10:25)
[2021-08-12] MEDS: CETIRIZINE 10 MG TABLET PO SCH (10:27)
[2021-08-12] MEDS: CHOLECALCIFEROL 1,000 UNIT TABLET PO SCH (10:27)
[2021-08-12] MEDS: ZINC SULFATE 220 MG CAPSULE PO SCH (10:27)
[2021-08-12] MEDS: cefTRIAXone 1,000 MG in SODIUM CHLORIDE 0.9% 100 ML IV SCH (20:44)
[2021-08-12] MEDS: ATORVASTATIN 40 MG TABLET PO SCH (20:45)
[2021-08-12] MEDS: TAMSULOSIN 0.4 MG CAPSULE PO SCH (20:45)
[2021-08-12] MEDS: FAMOTIDINE 20 MG TABLET PO SCH (20:45)
[2021-08-13] MEDS: HEPARIN 5,000 UNIT/1 ML VIAL SUBCUT SCH ×3 (01:55→16:36)
[2021-08-13] MEDS: ALBUTEROL INHALER 18 GM INH SCH ×4 (01:56→21:05)
[2021-08-13 06:43] LABS: Basophils % 0.2 % (0.0-0.8); Hematocrit 29.6 VOL% (42.0-52.0); Immature Granulocytes % 1.2 %; Immature Granulocytes Absolute 0.08 #; Lymphocytes # 0.5 10*3/uL (1.4-4.0); Lymphocytes % 7.5 % (21.2-54.2); Mean Corpuscular HGB Conc 33.8 GM/DL (32-36); Mean Corpuscular Volume 97.4 FL (87-102); Mean Platelet Volume 11.6 FL (9.6-12.0); Monocytes % 2.6 % (1.7-12.7); NRBC # 0.02 10*3/uL; Neutrophils % 88.5 % (38.7-73.9); Platelet Count 218 T/CUMM (130-400); Red Blood Count 3.04 MC/CUMM (3.8-5.5); Red Cell Distribution Width 16.7 % (9.3-17.3); White Blood Count 6.6 T/CUMM (4-12)
[2021-08-13 07:03] LABS: Calcium 7.6 MG/DL (8.5-10.1); Potassium 4.7 MMOL/L (3.5-5.1)
[2021-08-13 07:11] LABS: Acanthocytes Few; Band Neutrophils 1 % (0-10); Hypochromasia 1+; Lymphocytes 5 % (20-55); Microcytosis 1+; Nucleated Red Blood Cells 2 (0-5); Segmented Neutrophils 92 % (50-85); Total Cells Counted 100
[2021-08-13 07:12] LABS: Anisocytosis 1+; Burr Cells 1+; Ovalocytes Slight; Platelet Estimate Normal; Target Cells Slight
[2021-08-13] MEDS: INSULIN LISPRO 100 UNIT/ML SUBCUT SCH ×4 (08:18→21:05)
[2021-08-13] MEDS: ASPIRIN CHEW 81 MG TABLET PO SCH (09:08)
[2021-08-13] MEDS: hydrALAZINE 25 MG TABLET PO SCH ×3 (09:08→21:05)
[2021-08-13] MEDS: ISOSORBIDE MONONITRATE 30 MG TABLET PO SCH (09:08)
[2021-08-13] MEDS: DEXAMETHASONE 4 MG/1 ML VIAL IV SCH (09:08)
[2021-08-13] MEDS: carvediloL 12.5 MG TABLET PO SCH ×2 (09:08→21:05)
[2021-08-13] MEDS: ASCORBIC ACID 500 MG TABLET PO SCH ×2 (09:09→21:05)
[2021-08-13] MEDS: ZINC SULFATE 220 MG CAPSULE PO SCH (09:09)
[2021-08-13] MEDS: CHOLECALCIFEROL 1,000 UNIT TABLET PO SCH (09:09)
[2021-08-13] MEDS: CETIRIZINE 10 MG TABLET PO SCH (09:09)
[2021-08-13] MEDS ORDERED: EPOETIN ALFA-EPBX 2,000 UNIT/ML VIAL IV PRN (11:29)
[2021-08-13] MEDS: FAMOTIDINE 20 MG TABLET PO SCH (21:05)
[2021-08-13] MEDS: ATORVASTATIN 40 MG TABLET PO SCH (21:05)
[2021-08-13] MEDS: TAMSULOSIN 0.4 MG CAPSULE PO SCH (21:05)
[2021-08-13] MEDS: cefTRIAXone 1,000 MG in SODIUM CHLORIDE 0.9% 100 ML IV SCH (21:10)
[2021-08-14] MEDS: HEPARIN 5,000 UNIT/1 ML VIAL SUBCUT SCH ×3 (00:45→16:57)
[2021-08-14] MEDS: ALPRAZolam 0.5 MG TABLET PO PRN ×2 (02:20→15:37)
[2021-08-14] MEDS: ALBUTEROL INHALER 18 GM INH SCH ×4 (03:46→21:25)
[2021-08-14 07:05] LABS: Eosinophils # 0.1 10*3/uL (0.0-0.87); Eosinophils % 1.6 % (0.00-10.9); Hematocrit 29.4 VOL% (42.0-52.0); Hemoglobin 9.5 GM/DL (14.0-18.0); Immature Granulocytes % 1.2 %; Immature Granulocytes Absolute 0.06 #; Lymphocytes # 0.6 10*3/uL (1.4-4.0); Lymphocytes % 11.2 % (21.2-54.2); Mean Corpuscular HGB Conc 32.3 GM/DL (32-36); Mean Platelet Volume 11.7 FL (9.6-12.0); Monocytes % 1.8 % (1.7-12.7); NRBC # 0.03 10*3/uL; Neutrophils % 84.2 % (38.7-73.9); Platelet Count 208 T/CUMM (130-400); Red Blood Count 3.03 MC/CUMM (3.8-5.5); Red Cell Distribution Width 16.5 % (9.3-17.3)
[2021-08-14 07:36] LABS: Calcium 7.5 MG/DL (8.5-10.1); Ferritin 3522.8 ng/mL (26-388); Osmolality,Calculated 286.7 MOS/KG (273-304); Potassium 3.6 MMOL/L (3.5-5.1)
[2021-08-14] MEDS: INSULIN LISPRO 100 UNIT/ML SUBCUT SCH ×4 (07:56→21:20)
[2021-08-14] MEDS: hydrALAZINE 25 MG TABLET PO SCH ×3 (09:28→21:20)
[2021-08-14] MEDS: DEXAMETHASONE 4 MG/1 ML VIAL IV SCH (09:28)
[2021-08-14] MEDS: ASPIRIN CHEW 81 MG TABLET PO SCH (09:28)
[2021-08-14] MEDS: ASCORBIC ACID 500 MG TABLET PO SCH ×2 (09:29→21:20)
[2021-08-14] MEDS: carvediloL 12.5 MG TABLET PO SCH ×2 (09:29→21:20)
[2021-08-14] MEDS: CETIRIZINE 10 MG TABLET PO SCH (09:29)
[2021-08-14] MEDS: ZINC SULFATE 220 MG CAPSULE PO SCH (09:29)
[2021-08-14] MEDS: ISOSORBIDE MONONITRATE 30 MG TABLET PO SCH (09:29)
[2021-08-14] MEDS: CHOLECALCIFEROL 1,000 UNIT TABLET PO SCH (10:09)
[2021-08-14] MEDS: ATORVASTATIN 40 MG TABLET PO SCH (21:20)
[2021-08-14] MEDS: FAMOTIDINE 20 MG TABLET PO SCH (21:20)
[2021-08-14] MEDS: TAMSULOSIN 0.4 MG CAPSULE PO SCH (21:20)
[2021-08-14] MEDS: cefTRIAXone 1,000 MG in SODIUM CHLORIDE 0.9% 100 ML IV SCH (21:28)
[2021-08-15] MEDS: HEPARIN 5,000 UNIT/1 ML VIAL SUBCUT SCH ×3 (00:35→19:13)
[2021-08-15] MEDS: ALBUTEROL INHALER 18 GM INH SCH ×4 (02:35→19:13)
[2021-08-15 06:00] LABS: Basophils % 0.2 % (0.0-0.8); Eosinophils # 0.1 10*3/uL (0.0-0.87); Eosinophils % 1.2 % (0.00-10.9); Hemoglobin 10.6 GM/DL (14.0-18.0); Immature Granulocytes % 1.9 %; Immature Granulocytes Absolute 0.11 #; Lymphocytes # 0.6 10*3/uL (1.4-4.0); Lymphocytes % 10.6 % (21.2-54.2); Mean Corpuscular HGB Conc 33.1 GM/DL (32-36); Mean Platelet Volume 11.4 FL (9.6-12.0); Monocytes % 3.1 % (1.7-12.7); NRBC # 0.02 10*3/uL; Platelet Count 224 T/CUMM (130-400); Red Cell Distribution Width 17.1 % (9.3-17.3); White Blood Count 5.8 T/CUMM (4-12)
[2021-08-15 06:36] LABS: Calcium 7.4 MG/DL (8.5-10.1); Ferritin 3244.9 ng/mL (26-388); Osmolality,Calculated 288.7 MOS/KG (273-304); Potassium 4.2 MMOL/L (3.5-5.1)
[2021-08-15] MEDS: INSULIN LISPRO 100 UNIT/ML SUBCUT SCH ×4 (07:55→20:35)
[2021-08-15] MEDS: ASPIRIN CHEW 81 MG TABLET PO SCH (09:16)
[2021-08-15] MEDS: ZINC SULFATE 220 MG CAPSULE PO SCH (09:16)
[2021-08-15] MEDS: CETIRIZINE 10 MG TABLET PO SCH (09:16)
[2021-08-15] MEDS: hydrALAZINE 25 MG TABLET PO SCH ×3 (09:16→20:35)
[2021-08-15] MEDS: CHOLECALCIFEROL 1,000 UNIT TABLET PO SCH (09:16)
[2021-08-15] MEDS: DEXAMETHASONE 4 MG/1 ML VIAL IV SCH (09:16)
[2021-08-15] MEDS: ISOSORBIDE MONONITRATE 30 MG TABLET PO SCH (09:16)
[2021-08-15] MEDS: carvediloL 12.5 MG TABLET PO SCH ×2 (09:16→20:35)
[2021-08-15] MEDS: ASCORBIC ACID 500 MG TABLET PO SCH ×2 (09:16→20:35)
[2021-08-15] MEDS: TAMSULOSIN 0.4 MG CAPSULE PO SCH (20:35)
[2021-08-15] MEDS: FAMOTIDINE 20 MG TABLET PO SCH (20:35)
[2021-08-15] MEDS: ATORVASTATIN 40 MG TABLET PO SCH (20:35)
[2021-08-16] MEDS: ALBUTEROL INHALER 18 GM INH SCH ×4 (01:05→20:18)
[2021-08-16] MEDS: HEPARIN 5,000 UNIT/1 ML VIAL SUBCUT SCH ×3 (01:05→18:29)
[2021-08-16 05:53] LABS: Eosinophils # 0.1 10*3/uL (0.0-0.87); Eosinophils % 0.7 % (0.00-10.9); Hematocrit 30.5 VOL% (42.0-52.0); Hemoglobin 10.5 GM/DL (14.0-18.0); Immature Granulocytes % 1.8 %; Immature Granulocytes Absolute 0.13 #; Lymphocytes # 0.5 10*3/uL (1.4-4.0); Lymphocytes % 7.4 % (21.2-54.2); Mean Corpuscular HGB Conc 34.4 GM/DL (32-36); Mean Corpuscular Volume 98.4 FL (87-102); Mean Platelet Volume 11.8 FL (9.6-12.0); Monocytes % 3.1 % (1.7-12.7); NRBC # 0.03 10*3/uL; Platelet Count 225 T/CUMM (130-400); Red Cell Distribution Width 17.1 % (9.3-17.3); White Blood Count 7.1 T/CUMM (4-12)
[2021-08-16 06:31] LABS: Calcium 7.8 MG/DL (8.5-10.1); Ferritin 3601.9 ng/mL (26-388); Osmolality,Calculated 283.7 MOS/KG (273-304); Potassium 4.1 MMOL/L (3.5-5.1)
[2021-08-16] MEDS: hydrALAZINE 25 MG TABLET PO SCH ×3 (10:33→20:20)
[2021-08-16] MEDS: INSULIN LISPRO 100 UNIT/ML SUBCUT SCH ×4 (10:33→20:59)
[2021-08-16] MEDS: DEXAMETHASONE 4 MG/1 ML VIAL IV SCH (10:35)
[2021-08-16] MEDS: ISOSORBIDE MONONITRATE 30 MG TABLET PO SCH (10:35)
[2021-08-16] MEDS: ASPIRIN CHEW 81 MG TABLET PO SCH (10:35)
[2021-08-16] MEDS: carvediloL 12.5 MG TABLET PO SCH ×2 (10:35→20:20)
[2021-08-16] MEDS: ASCORBIC ACID 500 MG TABLET PO SCH ×2 (10:35→20:21)
[2021-08-16] MEDS: CHOLECALCIFEROL 1,000 UNIT TABLET PO SCH (10:36)
[2021-08-16] MEDS: CETIRIZINE 10 MG TABLET PO SCH (10:36)
[2021-08-16] MEDS: ZINC SULFATE 220 MG CAPSULE PO SCH (10:36)
[2021-08-16] MEDS: FAMOTIDINE 20 MG TABLET PO SCH (20:20)
[2021-08-16] MEDS: TAMSULOSIN 0.4 MG CAPSULE PO SCH (20:20)
[2021-08-16] MEDS: ATORVASTATIN 40 MG TABLET PO SCH (20:59)
[2021-08-16] MEDS: ALPRAZolam 0.5 MG TABLET PO PRN (21:31)
[2021-08-17] MEDS: HEPARIN 5,000 UNIT/1 ML VIAL SUBCUT SCH ×3 (01:43→18:56)
[2021-08-17] MEDS: ALBUTEROL INHALER 18 GM INH SCH ×2 (01:55→21:36)
[2021-08-17 06:07] LABS: Basophils % 0.1 % (0.0-0.8); Eosinophils # 0.2 10*3/uL (0.0-0.87); Eosinophils % 2.9 % (0.00-10.9); Hematocrit 29.6 VOL% (42.0-52.0); Hemoglobin 10.1 GM/DL (14.0-18.0); Immature Granulocytes Absolute 0.07 #; Lymphocytes # 0.6 10*3/uL (1.4-4.0); Lymphocytes % 8.3 % (21.2-54.2); Mean Corpuscular HGB Conc 34.1 GM/DL (32-36); Mean Platelet Volume 11.8 FL (9.6-12.0); Monocytes % 3.1 % (1.7-12.7); Neutrophils % 84.6 % (38.7-73.9); Platelet Count 227 T/CUMM (130-400); Red Blood Count 3.02 MC/CUMM (3.8-5.5); Red Cell Distribution Width 17.1 % (9.3-17.3); White Blood Count 7.2 T/CUMM (4-12)
[2021-08-17 06:42] LABS: Calcium 7.6 MG/DL (8.5-10.1); Ferritin 3342.2 ng/mL (26-388); Osmolality,Calculated 287.5 MOS/KG (273-304)
[2021-08-17] MEDS: INSULIN LISPRO 100 UNIT/ML SUBCUT SCH ×4 (07:30→21:35)
[2021-08-17] MEDS: CHOLECALCIFEROL 1,000 UNIT TABLET PO SCH (09:00)
[2021-08-17] MEDS: ASPIRIN CHEW 81 MG TABLET PO SCH (09:00)
[2021-08-17] MEDS: CETIRIZINE 10 MG TABLET PO SCH (09:00)
[2021-08-17] MEDS: ASCORBIC ACID 500 MG TABLET PO SCH ×2 (09:00→21:34)
[2021-08-17] MEDS: ZINC SULFATE 220 MG CAPSULE PO SCH (09:00)
[2021-08-17] MEDS: hydrALAZINE 25 MG TABLET PO SCH ×3 (09:00→21:35)
[2021-08-17] MEDS: ISOSORBIDE MONONITRATE 30 MG TABLET PO SCH (10:36)
[2021-08-17] MEDS: carvediloL 12.5 MG TABLET PO SCH (10:37)
[2021-08-17] MEDS ORDERED: AMIODARONE 200 MG TABLET PO SCH (11:30)
[2021-08-17] MEDS: SACUBITRIL/VALSARTAN 49-51 MG TABLET PO SCH ×2 (18:48→21:35)
[2021-08-17] MEDS: carvediloL 3.125 MG TABLET PO SCH (18:57)
[2021-08-17] MEDS: APIXABAN 5 MG TABLET PO SCH (21:35)
[2021-08-17] MEDS: TAMSULOSIN 0.4 MG CAPSULE PO SCH (21:35)
[2021-08-17] MEDS: FAMOTIDINE 20 MG TABLET PO SCH (21:36)
[2021-08-17] MEDS: ATORVASTATIN 40 MG TABLET PO SCH (21:38)
[2021-08-18] MEDS: HEPARIN 5,000 UNIT/1 ML VIAL SUBCUT SCH ×3 (00:56→17:00)
[2021-08-18] MEDS: ALBUTEROL INHALER 18 GM INH SCH ×4 (01:07→21:50)
[2021-08-18 05:50] LABS: Basophils % 0.2 % (0.0-0.8); Eosinophils % 0.2 % (0.00-10.9); Hematocrit 24.9 VOL% (42.0-52.0); Hemoglobin 8.7 GM/DL (14.0-18.0); Immature Granulocytes % 1.2 %; Immature Granulocytes Absolute 0.08 #; Lymphocytes # 0.6 10*3/uL (1.4-4.0); Lymphocytes % 8.7 % (21.2-54.2); Mean Corpuscular HGB Conc 34.9 GM/DL (32-36); Mean Corpuscular Volume 99.2 FL (87-102); Monocytes % 3.4 % (1.7-12.7); Neutrophils % 86.3 % (38.7-73.9); Platelet Count 199 T/CUMM (130-400); Red Blood Count 2.51 MC/CUMM (3.8-5.5); Red Cell Distribution Width 17.1 % (9.3-17.3); White Blood Count 6.4 T/CUMM (4-12)
[2021-08-18 06:20] LABS: Ferritin 3562.3 ng/mL (26-388); Osmolality,Calculated 293.8 MOS/KG (273-304); Potassium 4.5 MMOL/L (3.5-5.1)
[2021-08-18] MEDS: carvediloL 3.125 MG TABLET PO SCH ×2 (08:00→17:00)
[2021-08-18] MEDS: INSULIN LISPRO 100 UNIT/ML SUBCUT SCH ×4 (08:12→21:25)
[2021-08-18] MEDS: ZINC SULFATE 220 MG CAPSULE PO SCH (09:00)
[2021-08-18] MEDS: CETIRIZINE 10 MG TABLET PO SCH (09:00)
[2021-08-18] MEDS: ASPIRIN CHEW 81 MG TABLET PO SCH (09:00)
[2021-08-18] MEDS: SACUBITRIL/VALSARTAN 49-51 MG TABLET PO SCH ×2 (09:00→21:50)
[2021-08-18] MEDS: ASCORBIC ACID 500 MG TABLET PO SCH ×2 (09:00→21:50)
[2021-08-18] MEDS: CHOLECALCIFEROL 1,000 UNIT TABLET PO SCH (09:00)
[2021-08-18] MEDS: APIXABAN 5 MG TABLET PO SCH ×2 (09:00→21:50)
[2021-08-18] MEDS: hydrALAZINE 25 MG TABLET PO SCH ×3 (09:00→21:49)
[2021-08-18] MEDS: ISOSORBIDE MONONITRATE 30 MG TABLET PO SCH (09:00)
[2021-08-18] MEDS: ATORVASTATIN 40 MG TABLET PO SCH (21:49)
[2021-08-18] MEDS: FAMOTIDINE 20 MG TABLET PO SCH (21:49)
[2021-08-18] MEDS: TAMSULOSIN 0.4 MG CAPSULE PO SCH (21:49)
[2021-08-19] MEDS: ALBUTEROL INHALER 18 GM INH SCH ×4 (01:54→21:13)
[2021-08-19] MEDS: HEPARIN 5,000 UNIT/1 ML VIAL SUBCUT SCH ×3 (01:54→17:00)
[2021-08-19] MEDS: carvediloL 3.125 MG TABLET PO SCH ×2 (08:00→17:00)
[2021-08-19] MEDS: APIXABAN 5 MG TABLET PO SCH ×2 (09:00→21:13)
[2021-08-19] MEDS: ISOSORBIDE MONONITRATE 30 MG TABLET PO SCH (09:00)
[2021-08-19] MEDS: SACUBITRIL/VALSARTAN 49-51 MG TABLET PO SCH ×2 (09:00→21:13)
[2021-08-19] MEDS: hydrALAZINE 25 MG TABLET PO SCH ×2 (09:00→15:00)
[2021-08-19] MEDS: CHOLECALCIFEROL 1,000 UNIT TABLET PO SCH (09:00)
[2021-08-19] MEDS: CETIRIZINE 10 MG TABLET PO SCH (09:00)
[2021-08-19] MEDS: ASPIRIN CHEW 81 MG TABLET PO SCH (09:00)
[2021-08-19] MEDS: ASCORBIC ACID 500 MG TABLET PO SCH ×2 (09:00→21:13)
[2021-08-19] MEDS: ZINC SULFATE 220 MG CAPSULE PO SCH (09:00)
[2021-08-19] MEDS: INSULIN LISPRO 100 UNIT/ML SUBCUT SCH ×4 (10:01→21:38)
[2021-08-19] MEDS: TAMSULOSIN 0.4 MG CAPSULE PO SCH (21:13)
[2021-08-19] MEDS: ATORVASTATIN 40 MG TABLET PO SCH (21:13)
[2021-08-19] MEDS: FAMOTIDINE 20 MG TABLET PO SCH (21:14)
[2021-08-20] MEDS: hydrALAZINE 25 MG TABLET PO SCH ×4 (03:06→23:42)
[2021-08-20] MEDS: HEPARIN 5,000 UNIT/1 ML VIAL SUBCUT SCH ×2 (03:07→09:25)
[2021-08-20] MEDS: ALBUTEROL INHALER 18 GM INH SCH ×3 (03:07→13:32)
[2021-08-20 04:28] LABS: Basophils % 0.2 % (0.0-0.8); Eosinophils # 0.1 10*3/uL (0.0-0.87); Hematocrit 28.9 VOL% (42.0-52.0); Hemoglobin 9.3 GM/DL (14.0-18.0); Immature Granulocytes % 1.2 %; Immature Granulocytes Absolute 0.08 #; Lymphocytes # 0.6 10*3/uL (1.4-4.0); Lymphocytes % 9.2 % (21.2-54.2); Mean Corpuscular HGB Conc 32.2 GM/DL (32-36); Mean Platelet Volume 12.3 FL (9.6-12.0); Monocytes % 5.9 % (1.7-12.7); Neutrophils % 81.5 % (38.7-73.9); Platelet Count 199 T/CUMM (130-400); Red Blood Count 2.86 MC/CUMM (3.8-5.5); White Blood Count 6.4 T/CUMM (4-12)
[2021-08-20 05:00] LABS: Calcium 7.7 MG/DL (8.5-10.1); Osmolality,Calculated 286.8 MOS/KG (273-304); Potassium 4.6 MMOL/L (3.5-5.1)
[2021-08-20] MEDS: INSULIN LISPRO 100 UNIT/ML SUBCUT SCH ×4 (07:30→21:26)
[2021-08-20] MEDS: carvediloL 3.125 MG TABLET PO SCH ×2 (08:00→17:00)
[2021-08-20] MEDS: CHOLECALCIFEROL 1,000 UNIT TABLET PO SCH (09:25)
[2021-08-20] MEDS: ASPIRIN CHEW 81 MG TABLET PO SCH (09:25)
[2021-08-20] MEDS: ZINC SULFATE 220 MG CAPSULE PO SCH (09:25)
[2021-08-20] MEDS: SACUBITRIL/VALSARTAN 49-51 MG TABLET PO SCH ×2 (09:25→21:29)
[2021-08-20] MEDS: ISOSORBIDE MONONITRATE 30 MG TABLET PO SCH (09:25)
[2021-08-20] MEDS: APIXABAN 5 MG TABLET PO SCH (09:25)
[2021-08-20] MEDS: ASCORBIC ACID 500 MG TABLET PO SCH ×2 (09:25→21:28)
[2021-08-20] MEDS: CETIRIZINE 10 MG TABLET PO SCH (09:26)
[2021-08-20] MEDS: FAMOTIDINE 20 MG TABLET PO SCH (21:27)
[2021-08-20] MEDS: TAMSULOSIN 0.4 MG CAPSULE PO SCH (21:27)
[2021-08-20] MEDS: ATORVASTATIN 40 MG TABLET PO SCH (21:28)
[2021-08-21 05:32] LABS: Basophils % 0.2 % (0.0-0.8); Eosinophils # 0.1 10*3/uL (0.0-0.87); Eosinophils % 2.1 % (0.00-10.9); Hemoglobin 8.2 GM/DL (14.0-18.0); Immature Granulocytes Absolute 0.06 #; Lymphocytes # 0.7 10*3/uL (1.4-4.0); Lymphocytes % 11.5 % (21.2-54.2); Mean Corpuscular HGB Conc 34.2 GM/DL (32-36); Mean Corpuscular Volume 101.7 FL (87-102); Mean Platelet Volume 12.8 FL (9.6-12.0); Monocytes % 8.4 % (1.7-12.7); Neutrophils % 76.8 % (38.7-73.9); Platelet Count 174 T/CUMM (130-400); Red Blood Count 2.36 MC/CUMM (3.8-5.5); Red Cell Distribution Width 18.1 % (9.3-17.3); White Blood Count 6.2 T/CUMM (4-12)
[2021-08-21 05:56] LABS: Calcium 7.7 MG/DL (8.5-10.1); Osmolality,Calculated 282.8 MOS/KG (273-304); Potassium 4.2 MMOL/L (3.5-5.1)
[2021-08-21] MEDS: ALBUTEROL INHALER 18 GM INH SCH ×3 (07:54→20:00)
[2021-08-21] MEDS: ASCORBIC ACID 500 MG TABLET PO SCH ×2 (09:17→20:00)
[2021-08-21] MEDS: carvediloL 3.125 MG TABLET PO SCH ×2 (09:18→18:57)
[2021-08-21] MEDS: ISOSORBIDE MONONITRATE 30 MG TABLET PO SCH (09:18)
[2021-08-21] MEDS: ZINC SULFATE 220 MG CAPSULE PO SCH (09:18)
[2021-08-21] MEDS: CHOLECALCIFEROL 1,000 UNIT TABLET PO SCH (09:18)
[2021-08-21] MEDS: SACUBITRIL/VALSARTAN 49-51 MG TABLET PO SCH ×2 (09:18→20:00)
[2021-08-21] MEDS: ASPIRIN CHEW 81 MG TABLET PO SCH (09:18)
[2021-08-21] MEDS: INSULIN LISPRO 100 UNIT/ML SUBCUT SCH ×4 (09:19→20:00)
[2021-08-21] MEDS: CETIRIZINE 10 MG TABLET PO SCH (09:20)
[2021-08-21] MEDS: hydrALAZINE 25 MG TABLET PO SCH ×3 (09:54→20:00)
[2021-08-21] MEDS: WARFARIN 5 MG TABLET PO SCH (11:28)
[2021-08-21] MEDS: HEPARIN 5,000 UNIT/1 ML VIAL SUBCUT SCH (17:51)
[2021-08-21] MEDS: TAMSULOSIN 0.4 MG CAPSULE PO SCH (20:00)
[2021-08-21] MEDS: FAMOTIDINE 20 MG TABLET PO SCH (20:00)
[2021-08-21] MEDS: ATORVASTATIN 40 MG TABLET PO SCH (20:00)
[2021-08-22] MEDS: HEPARIN 5,000 UNIT/1 ML VIAL SUBCUT SCH ×3 (00:55→17:44)
[2021-08-22] MEDS: ALBUTEROL INHALER 18 GM INH SCH ×4 (00:56→20:04)
[2021-08-22 05:26] LABS: Basophils % 0.1 % (0.0-0.8); Eosinophils # 0.2 10*3/uL (0.0-0.87); Eosinophils % 3.1 % (0.00-10.9); Hematocrit 22.7 VOL% (42.0-52.0); Hemoglobin 7.5 GM/DL (14.0-18.0); Immature Granulocytes % 0.8 %; Immature Granulocytes Absolute 0.06 #; Lymphocytes # 0.6 10*3/uL (1.4-4.0); Lymphocytes % 8.5 % (21.2-54.2); Mean Corpuscular Volume 102.3 FL (87-102); Mean Platelet Volume 11.9 FL (9.6-12.0); Monocytes % 8.4 % (1.7-12.7); Neutrophils % 79.1 % (38.7-73.9); Platelet Count 165 T/CUMM (130-400); Red Blood Count 2.22 MC/CUMM (3.8-5.5); Red Cell Distribution Width 18.6 % (9.3-17.3); White Blood Count 7.5 T/CUMM (4-12)
[2021-08-22 05:58] LABS: Calcium 7.9 MG/DL (8.5-10.1); Potassium 4.5 MMOL/L (3.5-5.1)
[2021-08-22] MEDS: INSULIN LISPRO 100 UNIT/ML SUBCUT SCH ×4 (07:28→20:02)
[2021-08-22] MEDS: carvediloL 3.125 MG TABLET PO SCH ×2 (08:00→17:44)
[2021-08-22] MEDS ORDERED: EPOETIN ALFA-EPBX 10,000 UNIT/ML VIAL IV PRN (08:28)
[2021-08-22] MEDS ORDERED: SODIUM CHLORIDE 0.9% 1,000 ML IV PRN (08:52)
[2021-08-22] MEDS: ASCORBIC ACID 500 MG TABLET PO SCH ×2 (09:00→20:02)
[2021-08-22] MEDS: CETIRIZINE 10 MG TABLET PO SCH (09:00)
[2021-08-22] MEDS: CHOLECALCIFEROL 1,000 UNIT TABLET PO SCH (09:00)
[2021-08-22] MEDS: ZINC SULFATE 220 MG CAPSULE PO SCH (09:00)
[2021-08-22] MEDS: SACUBITRIL/VALSARTAN 49-51 MG TABLET PO SCH ×2 (09:00→20:03)
[2021-08-22] MEDS: hydrALAZINE 25 MG TABLET PO SCH ×3 (09:00→20:02)
[2021-08-22] MEDS: WARFARIN 5 MG TABLET PO SCH (09:00)
[2021-08-22] MEDS: ASPIRIN CHEW 81 MG TABLET PO SCH (09:00)
[2021-08-22] MEDS: ISOSORBIDE MONONITRATE 30 MG TABLET PO SCH (09:00)
[2021-08-22 10:44] LABS: INR 1.1; PT Patient Result 11.9 SECS (10.5-12.0)
[2021-08-22] MEDS: FAMOTIDINE 20 MG TABLET PO SCH (20:01)
[2021-08-22] MEDS: TAMSULOSIN 0.4 MG CAPSULE PO SCH (20:01)
[2021-08-22] MEDS: ATORVASTATIN 40 MG TABLET PO SCH (20:02)
[2021-08-23] MEDS: HEPARIN 5,000 UNIT/1 ML VIAL SUBCUT SCH ×3 (00:12→17:47)
[2021-08-23] MEDS: ALBUTEROL INHALER 18 GM INH SCH ×4 (00:15→20:05)
[2021-08-23 04:59] LABS: Basophils % 0.3 % (0.0-0.8); Eosinophils # 0.2 10*3/uL (0.0-0.87); Eosinophils % 2.1 % (0.00-10.9); Hematocrit 22.3 VOL% (42.0-52.0); Hemoglobin 8.3 GM/DL (14.0-18.0); Immature Granulocytes Absolute 0.09 #; Lymphocytes # 0.6 10*3/uL (1.4-4.0); Lymphocytes % 7.3 % (21.2-54.2); Mean Corpuscular HGB Conc 37.2 GM/DL (32-36); Mean Corpuscular Volume 101.8 FL (87-102); Mean Platelet Volume 12.6 FL (9.6-12.0); Monocytes % 8.6 % (1.7-12.7); Neutrophils % 80.7 % (38.7-73.9); Platelet Count 172 T/CUMM (130-400); Red Blood Count 2.19 MC/CUMM (3.8-5.5); White Blood Count 8.7 T/CUMM (4-12)
[2021-08-23 05:29] LABS: Calcium 8.2 MG/DL (8.5-10.1); Osmolality,Calculated 285.5 MOS/KG (273-304)
[2021-08-23] MEDS: hydrALAZINE 25 MG TABLET PO SCH ×3 (08:48→20:05)
[2021-08-23] MEDS: CETIRIZINE 10 MG TABLET PO SCH (08:48)
[2021-08-23] MEDS: ZINC SULFATE 220 MG CAPSULE PO SCH (08:48)
[2021-08-23] MEDS: ASCORBIC ACID 500 MG TABLET PO SCH ×2 (08:48→20:05)
[2021-08-23] MEDS: WARFARIN 5 MG TABLET PO SCH (08:48)
[2021-08-23] MEDS: ASPIRIN CHEW 81 MG TABLET PO SCH (08:48)
[2021-08-23] MEDS: carvediloL 3.125 MG TABLET PO SCH ×2 (08:49→17:47)
[2021-08-23] MEDS: ISOSORBIDE MONONITRATE 30 MG TABLET PO SCH (08:49)
[2021-08-23] MEDS: SACUBITRIL/VALSARTAN 49-51 MG TABLET PO SCH ×2 (08:49→20:05)
[2021-08-23] MEDS: CHOLECALCIFEROL 1,000 UNIT TABLET PO SCH (08:49)
[2021-08-23] MEDS: INSULIN LISPRO 100 UNIT/ML SUBCUT SCH ×4 (08:52→20:05)
[2021-08-23] MEDS: TAMSULOSIN 0.4 MG CAPSULE PO SCH (20:05)
[2021-08-23] MEDS: FAMOTIDINE 20 MG TABLET PO SCH (20:05)
[2021-08-23] MEDS: ATORVASTATIN 40 MG TABLET PO SCH (20:05)
[2021-08-24] MEDS: HEPARIN 5,000 UNIT/1 ML VIAL SUBCUT SCH ×3 (02:03→17:26)
[2021-08-24] MEDS: ALBUTEROL INHALER 18 GM INH SCH ×4 (02:03→20:15)
[2021-08-24 05:20] LABS: Basophils % 0.3 % (0.0-0.8); Eosinophils # 0.2 10*3/uL (0.0-0.87); Eosinophils % 2.7 % (0.00-10.9); Hematocrit 19.5 VOL% (42.0-52.0); Hemoglobin 7.2 GM/DL (14.0-18.0); Immature Granulocytes % 1.1 %; Immature Granulocytes Absolute 0.08 #; Lymphocytes # 0.7 10*3/uL (1.4-4.0); Lymphocytes % 9.9 % (21.2-54.2); Mean Corpuscular HGB Conc 36.9 GM/DL (32-36); Mean Corpuscular Volume 101.6 FL (87-102); Mean Platelet Volume 12.7 FL (9.6-12.0); Monocytes % 10.5 % (1.7-12.7); Neutrophils % 75.5 % (38.7-73.9); Platelet Count 189 T/CUMM (130-400); Red Blood Count 1.92 MC/CUMM (3.8-5.5); Red Cell Distribution Width 19.4 % (9.3-17.3); White Blood Count 7.2 T/CUMM (4-12)
[2021-08-24 05:35] LABS: Calcium 8.1 MG/DL (8.5-10.1); Osmolality,Calculated 286.7 MOS/KG (273-304)
[2021-08-24 05:47] LABS: PT Patient Result 11.4 SECS (10.5-12.0)
[2021-08-24] MEDS: INSULIN LISPRO 100 UNIT/ML SUBCUT SCH ×4 (07:45→20:15)
[2021-08-24] MEDS ORDERED: diphenhydrAMINE CAP 25 MG CAPSULE PO PRN (08:20)
[2021-08-24] MEDS: WARFARIN 5 MG TABLET PO SCH (09:02)
[2021-08-24] MEDS: ASPIRIN CHEW 81 MG TABLET PO SCH (09:02)
[2021-08-24] MEDS: carvediloL 3.125 MG TABLET PO SCH ×2 (09:03→17:58)
[2021-08-24] MEDS: SACUBITRIL/VALSARTAN 49-51 MG TABLET PO SCH ×2 (09:03→20:15)
[2021-08-24] MEDS: CHOLECALCIFEROL 1,000 UNIT TABLET PO SCH (09:04)
[2021-08-24] MEDS: CETIRIZINE 10 MG TABLET PO SCH (09:04)
[2021-08-24] MEDS: ISOSORBIDE MONONITRATE 30 MG TABLET PO SCH (09:04)
[2021-08-24] MEDS: ZINC SULFATE 220 MG CAPSULE PO SCH (09:04)
[2021-08-24] MEDS: ASCORBIC ACID 500 MG TABLET PO SCH ×2 (09:04→20:15)
[2021-08-24] MEDS: hydrALAZINE 25 MG TABLET PO SCH ×3 (09:05→20:15)
[2021-08-24] MEDS ORDERED: SODIUM CHLORIDE 0.9% 1,000 ML IV PRN ×2 (09:52→09:56)
[2021-08-24] MEDS: ATORVASTATIN 40 MG TABLET PO SCH (20:15)
[2021-08-24] MEDS: FAMOTIDINE 20 MG TABLET PO SCH (20:15)
[2021-08-24] MEDS: TAMSULOSIN 0.4 MG CAPSULE PO SCH (20:15)
[2021-08-25] MEDS: ALBUTEROL INHALER 18 GM INH SCH ×2 (01:25→07:41)
[2021-08-25] MEDS: HEPARIN 5,000 UNIT/1 ML VIAL SUBCUT SCH ×2 (01:25→08:44)
[2021-08-25 06:50] LABS: Basophils % 0.5 % (0.0-0.8); Eosinophils # 0.2 10*3/uL (0.0-0.87); Hematocrit 20.1 VOL% (42.0-52.0); Immature Granulocytes % 1.1 %; Immature Granulocytes Absolute 0.07 #; Lymphocytes # 0.7 10*3/uL (1.4-4.0); Lymphocytes % 10.8 % (21.2-54.2); Mean Corpuscular HGB Conc 34.8 GM/DL (32-36); Mean Corpuscular Volume 103.1 FL (87-102); Mean Platelet Volume 12.8 FL (9.6-12.0); Monocytes % 11.6 % (1.7-12.7); Platelet Count 185 T/CUMM (130-400); Red Blood Count 1.95 MC/CUMM (3.8-5.5); White Blood Count 6.3 T/CUMM (4-12)
[2021-08-25 07:05] LABS: Calcium 8.1 MG/DL (8.5-10.1); Potassium 4.1 MMOL/L (3.5-5.1)
[2021-08-25] MEDS: INSULIN LISPRO 100 UNIT/ML SUBCUT SCH ×2 (07:42→11:15)
[2021-08-25] MEDS: carvediloL 3.125 MG TABLET PO SCH (08:43)
[2021-08-25] MEDS: ASPIRIN CHEW 81 MG TABLET PO SCH (08:43)
[2021-08-25] MEDS: WARFARIN 5 MG TABLET PO SCH (08:43)
[2021-08-25] MEDS: hydrALAZINE 25 MG TABLET PO SCH (08:43)
[2021-08-25] MEDS: ISOSORBIDE MONONITRATE 30 MG TABLET PO SCH (08:44)
[2021-08-25] MEDS: ZINC SULFATE 220 MG CAPSULE PO SCH (08:44)
[2021-08-25] MEDS: SACUBITRIL/VALSARTAN 49-51 MG TABLET PO SCH (08:44)
[2021-08-25] MEDS: CHOLECALCIFEROL 1,000 UNIT TABLET PO SCH (08:44)
[2021-08-25] MEDS: ASCORBIC ACID 500 MG TABLET PO SCH (08:44)
[2021-08-25] MEDS: CETIRIZINE 10 MG TABLET PO SCH (08:45)
[2021-08-25 12:32] VITALS: BP 146/73
== END 2021-08-25 13:32 | disposition home health service (06) | DRG 177 ==
LOC: EDUNIT# → EDBD → N.EDINP 13:27 → N.ED 13:27 → N.2E 17:59 → SUATTDRO 08-08 15:30
PROVIDERS: ADMIT Emergency Medicine; ATTEND Internal Medicine

== ENCOUNTER 2022-04-26 11:30 | Inpatient (IN) ==
[2022-04-26 12:27] LABS: Basophils # 0.1 10*3/uL (0.0-0.2); Basophils % 1.3 % (0.0-0.8); Eosinophils # 0.6 10*3/uL (0.0-0.87); Eosinophils % 7.9 % (0.00-10.9); Hematocrit 29.6 VOL% (42.0-52.0); Hemoglobin 9.3 GM/DL (14.0-18.0); Immature Granulocytes % 0.5 %; Immature Granulocytes Absolute 0.04 #; Lymphocytes # 1.2 10*3/uL (1.4-4.0); Lymphocytes % 15.8 % (21.2-54.2); Mean Corpuscular HGB Conc 31.4 GM/DL (32-36); Mean Corpuscular Volume 103.1 FL (87-102); Mean Platelet Volume 11.4 FL (9.6-12.0); Monocytes # 0.7 10*3/uL (0.11-0.8); Neutrophils % 65.5 % (38.7-73.9); Platelet Count 232 T/CUMM (130-400); Red Blood Count 2.87 MC/CUMM (3.8-5.5); Red Cell Distribution Width 14.3 % (9.3-17.3); White Blood Count 7.9 T/CUMM (4-12)
[2022-04-26 12:50] LABS: Alanine Aminotransferase 12 U/L (16-61); Albumin 2.6 G/DL (3.4-5.0); Alkaline Phosphatase 79 U/L (45-117); Aspartate Amino Transferase 15 U/L (0-37); Bilirubin,Total < 0.39 MG/DL (0.20-1.00); Blood Urea Nitrogen 25 MG/DL (7-18); Calcium 8.7 MG/DL (8.5-10.1); Carbon Dioxide 27 MMOL/L (21-32); Chloride 100 MMOL/L (98-107); Eosinophils 6 % (0-10); Glucose 128 MG/DL (74-106); Lymphocytes 18 % (20-55); Osmolality,Calculated 275.1 MOS/KG (273-304); Platelet Estimate Adequate; Potassium 3.2 MMOL/L (3.5-5.1); Sodium 135 MMOL/L (136-145); Total Cells Counted 100; Total Protein 7.4 G/DL (6.4-8.2)
[2022-04-26] MEDS: ENOXAPARIN 30 MG/0.3 ML SYRINGE SUBCUT SCH (15:38)
[2022-04-26] MEDS: PANTOPRAZOLE 40 MG TABLET PO SCH (15:38)
[2022-04-26] MEDS: ALBUTEROL 2.5 MG/3 ML NEB RESP TX SCH ×3 (16:00→22:45)
[2022-04-26] MEDS: DOPamine 800 MG/250 ML PREMIX IV SCH (20:00)
[2022-04-26] MEDS: ONDANSETRON 4 MG/2 ML VIAL IV PRN (20:55)
[2022-04-26] MEDS ORDERED: NON-FORMULARY MEDICATION (Ferric Citrate [Auryxia] 210 mg iron Tablet) PO SCH (21:00)
[2022-04-27] MEDS: ALBUTEROL 2.5 MG/3 ML NEB RESP TX SCH ×6 (02:29→23:05)
[2022-04-27] MEDS: ONDANSETRON 4 MG/2 ML VIAL IV PRN (04:00)
[2022-04-27 04:41] LABS: Basophils # 0.1 10*3/uL (0.0-0.2); Basophils % 0.9 % (0.0-0.8); Eosinophils # 0.4 10*3/uL (0.0-0.87); Eosinophils % 4.6 % (0.00-10.9); Hematocrit 31.4 VOL% (42.0-52.0); Hemoglobin 10.1 GM/DL (14.0-18.0); Immature Granulocytes % 0.5 %; Immature Granulocytes Absolute 0.04 #; Lymphocytes # 1.1 10*3/uL (1.4-4.0); Mean Corpuscular HGB Conc 32.2 GM/DL (32-36); Mean Corpuscular Volume 101.6 FL (87-102); Mean Platelet Volume 11.3 FL (9.6-12.0); Monocytes # 0.6 10*3/uL (0.11-0.8); Monocytes % 7.1 % (1.7-12.7); Neutrophils % 73.9 % (38.7-73.9); Platelet Count 237 T/CUMM (130-400); Red Blood Count 3.09 MC/CUMM (3.8-5.5); Red Cell Distribution Width 14.5 % (9.3-17.3); White Blood Count 8.1 T/CUMM (4-12)
[2022-04-27 04:50] LABS: INR 1.1; PT Patient Result 11.9 SECS (10.5-12.0)
[2022-04-27 05:02] LABS: Calcium 9.1 MG/DL (8.5-10.1); Osmolality,Calculated 276.1 MOS/KG (273-304); Potassium 3.2 MMOL/L (3.5-5.1)
[2022-04-27] MEDS: ASPIRIN CHEW 81 MG TABLET PO SCH (08:01)
[2022-04-27] MEDS: PANTOPRAZOLE 40 MG TABLET PO SCH (08:01)
[2022-04-27] MEDS: ISOSORBIDE MONONITRATE 30 MG TABLET PO SCH (08:08)
[2022-04-27] MEDS ORDERED: NON-FORMULARY MEDICATION (Vit B,C-Iron Fum-Fa-D3-Zinc Ox [Prorenal] 8 mg iron-800 mcg-1,00 PO SCH (14:36)
[2022-04-27] MEDS: ENOXAPARIN 30 MG/0.3 ML SYRINGE SUBCUT SCH (15:37)
[2022-04-27] MEDS: DOPamine 800 MG/250 ML PREMIX IV SCH (20:15)
[2022-04-27] MEDS: diphenhydrAMINE CAP 25 MG CAPSULE PO PRN (20:22)
[2022-04-28] MEDS: ALBUTEROL 2.5 MG/3 ML NEB RESP TX SCH ×7 (03:00→22:18)
[2022-04-28] MEDS: diphenhydrAMINE CAP 25 MG CAPSULE PO PRN (03:02)
[2022-04-28 04:04] LABS: Basophils # 0.1 10*3/uL (0.0-0.2); Basophils % 0.4 % (0.0-0.8); Eosinophils # 0.3 10*3/uL (0.0-0.87); Eosinophils % 2.6 % (0.00-10.9); Hematocrit 29.9 VOL% (42.0-52.0); Hemoglobin 9.6 GM/DL (14.0-18.0); Immature Granulocytes % 0.6 %; Immature Granulocytes Absolute 0.07 #; Lymphocytes % 8.6 % (21.2-54.2); Mean Corpuscular HGB Conc 32.1 GM/DL (32-36); Mean Corpuscular Volume 101.7 FL (87-102); Mean Platelet Volume 11.1 FL (9.6-12.0); Monocytes # 0.9 10*3/uL (0.11-0.8); Monocytes % 7.6 % (1.7-12.7); Neutrophils % 80.2 % (38.7-73.9); Platelet Count 215 T/CUMM (130-400); Red Blood Count 2.94 MC/CUMM (3.8-5.5); Red Cell Distribution Width 14.3 % (9.3-17.3); White Blood Count 11.4 T/CUMM (4-12)
[2022-04-28 04:24] LABS: Calcium 8.7 MG/DL (8.5-10.1); Osmolality,Calculated 273.1 MOS/KG (273-304); Potassium 3.5 MMOL/L (3.5-5.1)
[2022-04-28] MEDS ORDERED: POTASSIUM CHLORIDE 20 MEQ TABLET PO ONE (06:55)
[2022-04-28] MEDS: ASPIRIN CHEW 81 MG TABLET PO SCH (09:43)
[2022-04-28] MEDS: ISOSORBIDE MONONITRATE 30 MG TABLET PO SCH (09:43)
[2022-04-28] MEDS: PANTOPRAZOLE 40 MG TABLET PO SCH (09:44)
[2022-04-28] MEDS: ENOXAPARIN 30 MG/0.3 ML SYRINGE SUBCUT SCH (15:49)
[2022-04-28] MEDS: DOPamine 800 MG/250 ML PREMIX IV SCH (20:34)
[2022-04-29] MEDS: ALBUTEROL 2.5 MG/3 ML NEB RESP TX SCH ×5 (02:37→19:25)
[2022-04-29 04:38] LABS: Basophils # 0.1 10*3/uL (0.0-0.2); Basophils % 0.8 % (0.0-0.8); Eosinophils # 0.5 10*3/uL (0.0-0.87); Hematocrit 28.5 VOL% (42.0-52.0); Hemoglobin 9.2 GM/DL (14.0-18.0); Immature Granulocytes % 0.6 %; Immature Granulocytes Absolute 0.05 #; Lymphocytes # 1.1 10*3/uL (1.4-4.0); Lymphocytes % 13.3 % (21.2-54.2); Mean Corpuscular HGB Conc 32.3 GM/DL (32-36); Mean Corpuscular Volume 101.1 FL (87-102); Mean Platelet Volume 11.3 FL (9.6-12.0); Monocytes # 0.7 10*3/uL (0.11-0.8); Neutrophils % 70.3 % (38.7-73.9); Platelet Count 225 T/CUMM (130-400); Red Blood Count 2.82 MC/CUMM (3.8-5.5); Red Cell Distribution Width 14.4 % (9.3-17.3); White Blood Count 7.9 T/CUMM (4-12)
[2022-04-29 04:54] LABS: Calcium 9.3 MG/DL (8.5-10.1); Osmolality,Calculated 274.2 MOS/KG (273-304); Potassium 3.7 MMOL/L (3.5-5.1)
[2022-04-29] MEDS: ISOSORBIDE MONONITRATE 30 MG TABLET PO SCH (09:31)
[2022-04-29] MEDS: ASPIRIN CHEW 81 MG TABLET PO SCH (09:31)
[2022-04-29] MEDS: PANTOPRAZOLE 40 MG TABLET PO SCH (09:32)
[2022-04-29] MEDS: diphenhydrAMINE CAP 25 MG CAPSULE PO PRN (16:10)
[2022-04-29] MEDS: ENOXAPARIN 30 MG/0.3 ML SYRINGE SUBCUT SCH (16:10)
[2022-04-29] MEDS: DOPamine 800 MG/250 ML PREMIX IV SCH (20:38)
[2022-04-30] MEDS: ALBUTEROL 2.5 MG/3 ML NEB RESP TX SCH ×7 (00:40→23:02)
[2022-04-30 05:24] LABS: Basophils # 0.1 10*3/uL (0.0-0.2); Basophils % 0.7 % (0.0-0.8); Eosinophils # 0.7 10*3/uL (0.0-0.87); Eosinophils % 8.2 % (0.00-10.9); Hematocrit 27.2 VOL% (42.0-52.0); Immature Granulocytes % 0.6 %; Immature Granulocytes Absolute 0.05 #; Lymphocytes # 0.9 10*3/uL (1.4-4.0); Lymphocytes % 10.3 % (21.2-54.2); Mean Corpuscular HGB Conc 33.1 GM/DL (32-36); Mean Corpuscular Volume 100.7 FL (87-102); Mean Platelet Volume 11.2 FL (9.6-12.0); Monocytes # 0.7 10*3/uL (0.11-0.8); Monocytes % 7.9 % (1.7-12.7); Neutrophils % 72.3 % (38.7-73.9); Platelet Count 236 T/CUMM (130-400); Red Cell Distribution Width 14.5 % (9.3-17.3); White Blood Count 8.5 T/CUMM (4-12)
[2022-04-30 05:36] LABS: Calcium 8.9 MG/DL (8.5-10.1); Osmolality,Calculated 273.5 MOS/KG (273-304)
[2022-04-30] MEDS ORDERED: DIAZEPAM 5 MG TABLET PO ONE (07:44)
[2022-04-30] MEDS ORDERED: ceFAZolin 1,000 MG VIAL IRRIG ONE (07:44)
[2022-04-30] MEDS ORDERED: diphenhydrAMINE CAP 25 MG CAPSULE PO ONE (07:44)
[2022-04-30] MEDS: PANTOPRAZOLE 40 MG TABLET PO SCH (10:14)
[2022-04-30] MEDS: ISOSORBIDE MONONITRATE 30 MG TABLET PO SCH (10:14)
[2022-04-30] MEDS: ASPIRIN CHEW 81 MG TABLET PO SCH (10:14)
[2022-04-30] MEDS ORDERED: MIDAZOLAM 2 MG/2 ML VIAL ONE (10:32)
[2022-04-30] MEDS ORDERED: fentaNYL 100 MCG/2 ML VIAL ONE (10:32)
[2022-04-30] MEDS ORDERED: ceFAZolin 1,000 MG VIAL ONE (10:32)
[2022-04-30] MEDS ORDERED: HEPARIN/NACL 0.9% 2 UNITS/ML 1,000 UNIT/500 ML BAG IV ONE (10:32)
[2022-04-30] MEDS ORDERED: LIDOCAINE 1%/EPI INJ 20 ML VIAL ONE (10:36)
[2022-04-30] MEDS ORDERED: TISSUE ADHESIVE 1 EACH APPLICATOR TOP ONE (12:38)
[2022-04-30] MEDS: ENOXAPARIN 30 MG/0.3 ML SYRINGE SUBCUT SCH (16:10)
[2022-04-30] MEDS: DOPamine 800 MG/250 ML PREMIX IV SCH (21:00)
[2022-04-30] MEDS ORDERED: ROSUVASTATIN 10 MG TABLET PO SCH (21:00)
[2022-05-01] MEDS: diphenhydrAMINE CAP 25 MG CAPSULE PO PRN ×2 (00:53→08:54)
[2022-05-01] MEDS: ALBUTEROL 2.5 MG/3 ML NEB RESP TX SCH ×2 (04:00→07:31)
[2022-05-01 04:30] LABS: Basophils % 0.4 % (0.0-0.8); Eosinophils # 0.5 10*3/uL (0.0-0.87); Eosinophils % 7.8 % (0.00-10.9); Hematocrit 26.3 VOL% (42.0-52.0); Hemoglobin 8.5 GM/DL (14.0-18.0); Immature Granulocytes % 0.6 %; Immature Granulocytes Absolute 0.04 #; Lymphocytes # 0.7 10*3/uL (1.4-4.0); Lymphocytes % 10.5 % (21.2-54.2); Mean Corpuscular HGB Conc 32.3 GM/DL (32-36); Mean Corpuscular Volume 100.8 FL (87-102); Mean Platelet Volume 11.1 FL (9.6-12.0); Monocytes # 0.7 10*3/uL (0.11-0.8); Monocytes % 9.7 % (1.7-12.7); Platelet Count 227 T/CUMM (130-400); Red Blood Count 2.61 MC/CUMM (3.8-5.5); Red Cell Distribution Width 14.6 % (9.3-17.3); White Blood Count 6.8 T/CUMM (4-12)
[2022-05-01 04:46] LABS: Calcium 8.4 MG/DL (8.5-10.1)
[2022-05-01] MEDS ORDERED: DEXTROSE 50% 25 GM/50 ML SYRINGE IV ONE ×2 (04:50→05:30)
[2022-05-01 04:52] LABS: Risk Ratio 2.98; VLDL Cholesterol 15.8 MG/DL
[2022-05-01] MEDS: ISOSORBIDE MONONITRATE 30 MG TABLET PO SCH (08:52)
[2022-05-01] MEDS: ASPIRIN CHEW 81 MG TABLET PO SCH (08:52)
[2022-05-01] MEDS: PANTOPRAZOLE 40 MG TABLET PO SCH (08:52)
[2022-05-01] MEDS ORDERED: TISSUE ADHESIVE 1 EACH APPLICATOR TOP ONE (10:39)
[2022-05-01 10:45] VITALS: BP 121/72
[2022-05-01] MEDS ORDERED: carvediloL 3.125 MG TABLET PO SCH (12:00)
[2022-05-01] MEDS ORDERED: GABAPENTIN 300 MG CAPSULE PO SCH (21:00)
== END 2022-05-01 13:18 | disposition home or self-care (01) | DRG 242 ==
LOC: EDBD → EDUNIT# → N.EDINP 11:30 → N.ED 11:30 → SUATTDRO 13:38 → N.ICU 14:46 → SUATTDRO 04-27 18:53
PROVIDERS: ADMIT Internal Medicine; ATTEND Family Medicine